=== PATIENT | female | born 2005 | race Caucasian/White ===

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

== ENCOUNTER 2025-01-25 12:47 | Outpatient (CLI) | payer BC, SELFPAY ==
--- NOTE | 2025-01-25 13:00 | CRLHL7_ITS ---
For Patients: As a result of the Century Cures Act, medical imaging exams and procedure reports are released immediately into your electronic medical record. You may view this report before your referring provider. If you have questions, please contact your health care provider. OBSTETRICAL ULTRASOUND TRANSABDOMINAL, 01/25/2025 CLINICAL INDICATION: Dating. LMP: 11/14/2024 TRINITY by LMP: 08/21/2025 Gestational age: 10 weeks 2 days Previous ultrasound: No TECHNIQUE: Real-time fox-scale imaging of the fetus was performed transabdominal. FINDINGS: CRL: 3.3 cm, 10 weeks 1 day; TRINITY 08/22/2025 heart rate: 167 BPM Gestational sac: 4.2 cm, appears within normal limits Yolk sac: 5.0 mm, appears within normal limits Right ovary: 2.6 x 1.0 x 1.7 cm Left ovary: 3.8 x 2.0 x 2.6 cm, CL IMPRESSION: 1. Single living intrauterine measuring 10 weeks 1 day with sonographic due date of 08/22/2025. 2. Subchorionic hemorrhage measures 2.8 x 1.1 x 1.0 cm. AYUSH PASCAL M.D. Diagnostic Radiologist [email or web address] Transcribed: 4:[address]/Dictated by: Ayush Pascal MD @ 01/25/2025 4:06:00 PM (Electronically Signed)
== END 2025-01-25 12:48 | disposition home or self-care (01) ==
LOC: US 12:48
PROVIDERS: PCP Family Medicine; Visit Provider Registered Nurse
DX: Z34.91 Encounter for supervision of normal pregnancy, unspecified, first trimester (principal); O20.9 Hemorrhage in early pregnancy, unspecified; Z3A.10 10 weeks gestation of pregnancy
CPT/HCPCS: 76801; 83021; 83036; 85025; 86592; 86703; 86704; 86706; 86762; 86787; 86803; 86850; 86900; 86901; 87086; 87340; 87491; 87591

== ENCOUNTER 2025-03-25 15:14 | Emergency (ER) | payer BC, SELFPAY ==
--- OUTSIDE RECORDS SUMMARY | 2025-03-25 15:17 | XMS_ITS ---
Author Organization [facility] Source Produ ction (ClinicalSummary Clone) Address Unknown Care Team Providers Care Novelty Twister Tender Name Role Phone Unavailable Primary Care Physician Unavailab le Results * [UNITY] ANEUPLOIDY NIPT Performed by: [facility]. Component Value Range Date Fraction 8.3% 03/04/2025 04 :36 am [facility] Sex Chromosome Aneuploidy NOT DETECTED 04:36 am [facility] Monosomy X LOW RISK <1 in 10,000 2024 04:36 am [facility] Trisomy 13 LOW RISK <1 in 10,000 2024 04:36 am [facility] Trisomy 18 LOW RISK <1 in 10,000 2024 04:36 am [facility] Trisomy 21 LOW RISK <1 in 10,000 2024 04:36 am [facility] Sex MALE 03/04/2025 04:3 6 am [facility] Gestation STACK 03/04/20 25 04:36 am [facility] For detailed report, see PDF See PDF 03/04/2025 04:36 am [place] 03/04/2025 04:3 6 am [facility] Social History Observation Value Start Date End Date
--- OUTSIDE RECORDS SUMMARY | 2025-03-25 15:17 | XMS_ITS ---
Author Organization [facility] Source Produ ction (ClinicalSummary Clone) Address Unknown Care Team Providers Care Retarder Operator Name Role Phone Unavailable Primary Care Physician Unavailab le Results * [UNITY] CARRIER SCREEN Performed by: [facility] Component Value Range Date Sickle Cell Disease/Beta-Thalassemia/Hemo globinopathies carrier screen NEGATIVE 03/03/2025 03:06 am [facility] Alpha-Thalassemia carrier screen NEGATIVE 03/03/2025 03:06 am [facility] Cystic Fibrosis carrier screen NEGATIVE 03/03/2025 03:06 am [facility] Spinal Muscular Atrophy carrier screen NEGATIVE 3 SMN1 copies, SNP not present 03/03/2025 03:06 am [facility] For detailed report, see PDF See PDF 03/03/2025 03:06 am [facility] 03/03/2025 03:0 6 am [facility] Social History Observation Value Start Date End Date
[2025-03-25 15:22] VITALS: BP 123/77; PULSE 96; RESP 18; O2SAT 100; BMI 20.4
--- NOTE | 2025-03-25 16:07 | ED.GENADULT ---
HPI - General Adult General Date Seen: 03/25/25 Chief complaint: Syncope/Fainted Stated complaint: fainting, preg. 18 weeks Time Seen by Provider: 03/25/25 15:59 History of Present Illness HPI narrative: 19-year-old female who is currently 18 weeks . She has a past medical history of anxiety / depression / PTSD, panic attacks, history of a cerebral aneurysm. She notes that she has a history of frequent episodes of syncope dating back for several years of her life. She has been told that they tend to be related to low blood pressure when she is standing that she should try to stay hydrated and eat more salt. She has been doing well during her and has not had any syncopal events for the past couple of months. She did have some nausea and vomiting during her 1st trimester but that is largely resolved for the past several weeks. She has been doing her best to try to drink fluids and stay hydrated (although her boyfriend notes that he thinks she is not drinking). 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 Yesterday at work she had been standing for couple of hours when she began to feel the symptoms leading up to a fainting spell. She started a see flashing lights and a little bit of darkness of her vision. She knew she was going to faint. She tried to moved to the bathroom so that if she fainted she would be embarrassed in front of other people. She did get to the bathroom and then was sitting down and then did black out briefly. She does not think she was injured when she fainted. It sounds like she was able to finish her shift at work yesterday. This morning she was in the shower when she had another episode of fainting. She again felt a little bit lightheaded, saw stars and darkness of her vision. She tried to sit down the shower but fell. She think she probably bumped the back of her head. She feels like there is a small bruise there but there is not any lump. She does not have a severe headache. Vision is normal. No focal numbness or weakness in her arms or legs. No neck pain. She talk about the fainting and they told her to come to the ER because of the fainting. She says there is really nothing different about the spells compared to what she had been experiencing for the past several years. It sounds like she has been thought to have orthostatic hypotension and has been told eat more salt. As far as we know she has never had any cardiac arrhythmia, valve disease, structural heart disease. She does not have any history of seizures. she denies any other recent illness. No fever. No cough. No shortness of breath. No chest pain. No nausea or vomiting recently. Bowel movements have been normal. No diarrhea. No black or bloody stools. Urination is normal. She is not having any vaginal bleeding. No pelvic pain. She does feel her baby kicking sometimes. She has no concerns with the . Per medical record she had an OB check 2 days ago on 03/22. According to those records she was 18 weeks 2 days. She had a lot of anxiety during her early phase of which is better now. She started a job at a grocery store 2 weeks ago. She is staying with her boyfriend at his parent's house. Related Data Home Medications ?Medication ?Instructions ?Recorded ?Confirmed docosahexaenoic acid 200 mg mg PO 01/25/25 03/22/25 capsule ( DHA) Previous Rx's ?Medication ?Instructions ?Recorded epinephrine 0.3 mg/0.3 mL 0.3 ml IM ONCE #1 ea 03/06/22 injection, auto-injector (EpiPen 2-Kt) Allergies Allergy/AdvReac Type Severity Reaction Status Date / Time amoxicillin Allergy Unknown Verified 03/25/25 15:29 [facility] Medical History Abnormal uterine bleeding (AUB) ?N93.9 - Abnormal uterine and vaginal bleeding, unspecified (ICD-10) Heart murmur ?R01.1 - Cardiac murmur, unspecified (ICD-10) Insomnia ?G47.00 - Insomnia, unspecified (ICD-10) Depression ?F32.A - Depression, unspecified (ICD-10) Anxiety ?F41.9 - Anxiety disorder, unspecified (ICD-10) Serotonin syndrome ?G25.79 - Other drug induced movement disorders (ICD-10) Intentional overdose ?T50.902A - Poisoning by unspecified drugs, medicaments and biological substances, intentional self-harm, initial encounter (ICD-10) History of syncope ?Z87.898 - Personal history of other specified conditions (ICD-10) History of posttraumatic stress disorder (PTSD) ?Z86.59 - Personal history of other mental and behavioral disorders (ICD-10) History of attention deficit hyperactivity disorder (ADHD) ?Z86.59 - Personal history of other mental and behavioral disorders (ICD-10) Surgical History Cisco teeth extracted ?K08.409 - Partial loss of teeth, unspecified cause, unspecified class (ICD-10) Family History Family/Other Brain aneurysm Mother Anxiety and depression Father Anxiety and depression Bipolar disorder Father Alcohol dependence Drug dependence Mother FH: mental illness Social History Narrative: Single, 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 Nonsmoker. No alcohol use. What is your current living situation?: I presently have a place to live Problems where you live: no known problems and declined to answer In the past 12 months, utilities in danger of being shut off: no In past 12 months, lack of transportation kept you from medical appts, meetings, work, or getting things needed for daily living: no In the past 12 mos, have been you worried that your food would run out before you had money to buy more?: never true In the past 12 mos, the food you bought just didn't last and you didn't have money to buy more?: never true Smoking Status: Never smoker Do you use any of these nicotine containing products: Vaping Products Second hand tobacco smoke exposure: No How often do you have a drink containing alcohol: never AUDIT-C Alcohol total score: 0 Non-prescribed substance use: marijuana (any form) How often does anyone, including family, friends and others, physically hurt you: never How often does anyone, including family, friends and others, insult or talk down to you: never How often does anyone, including family, friends and others, threaten you with harm: never How often does anyone, including family, friends and others, scream or curse at you: frequently service: No Health Related Social Needs: Other personal risk factors, not elsewhere classified (Z91.89) Exam Narrative: Exam Narrative: Constitutional: Appears well-developed and well-nourished. Alert. Conversant. Non toxic. HENT: Head: Patient says she has a a mild occipital headache. No depressed skull fracture, Raccoon Eyes, Ayers's sign, or hemotympanum. Face normal. TMs normal. Nose: Nose normal. Mouth/Throat: Oral mucosa is clear and moist. no trismus. Pharynx normal. Tonsils symmetric. No tonsillar enlargement, erythema, or exudate. Eyes: Conjunctivae normal. EOM normal. Pupils equal, round, and reactive to light. No scleral icterus. Neck: Normal range of motion. Neck supple. No tracheal deviation present. Cardiovascular: Normal rate, regular rhythm. No gallop. No friction rub. No murmur heard. Symmetric radial artery pulses Pulmonary/Chest: Effort normal. No stridor. No respiratory distress. No wheezes. No rales. No rhonchi . No tenderness. Abdominal: Soft. Bowel sounds normal. No distension. Gravid nontender uterus with the fundus just below the umbilicus consistent with 18 week reported dates.. No tenderness. No rebound. No guarding. Musculoskeletal: RUE: Normal range of motion. No tenderness. No deformity LUE: Normal range of motion. No tenderness. No deformity RLE: Normal range of motion. No edema. No tenderness. No deformity LLE: Normal range of motion. No edema. No tenderness. No deformity Lymph: No cervical adenopathy. Neurological: Mental status normal. Attention normal. Alert and oriented x3. GCS 15. Memory normal. Speech fluent. Cognition normal. Cranial Nerves intact II-XII except I did not formally test gag or visual acuity. EOMI. Palate elevates symmetrically and tongue protrudes in the midline. Strength: 5/5 trapezius on the right and left 5/5 deltoid on the right and left 5/5 biceps on the right and left 5/5 triceps on the right and left 5/5 director of cardiology on the right and left 5/5 thumb opposition on the right and left 5/5 finger abduction on the right and left 5/5 hip flexors (L3) on the right and left 5/5 quadriceps (L4) on the right and left 5/5 tibialis anterior on the right and left 5/5 EHL (L5) on the right and left 5/5 gastrocnemius (S1) on the right and left 5/5 hamstring on the right and left Sensation intact to light touch in both upper extremities (C4-T1) Sensation intact to light touch in Both lower extremities (L4-S1). Finger to nose and coordination normal. Gait normal. Skin: Skin is warm and dry. No rash noted. No pallor. Normal capillary refill. Psychiatric: Normal mood. Normal affect. polite. Interacts supportively with her boyfriend. Const: Vital Signs, click to edit/add: Vital Signs - 24 hr 03/25/25 15:22 Pulse Rate [Right Pulse Oximeter] 96 Respiratory Rate 18 Blood Pressure [Ri ght Upper Arm] 123/77 Pulse Oximetry 100 Oxygen Delivery Me thod Room Air Course Vital Signs Vital signs: Initial Vital Signs Pulse Rate 96 03/25/25 15:22 Pulse Rhythm Regular 03/25/25 15:22 Pulse Strength 3+ Normal 03/25/25 15:22 Respiratory Rate 18 03/25/25 15:22 Blood Pressure 123/77 03/25/25 15:22 Blood Pressure Mean 92 03/25/25 15:22 Blood Pressure Position Sitting 03/25/25 15:22 Pulse Oximetry 100 03/25/25 15:22 Oxygen Delivery Method Room Air 03/25/25 15:22 Vital Signs Pulse Rate 96 03/25/25 15:22 Respiratory Rate 18 03/25/25 15:22 Blood Pressure 123/77 03/25/25 15:22 Pulse Oximetry 100 03/25/25 15:22 Oxygen Delivery Method Room Air 03/25/25 15:22 Pulse Rate 96 03/25/25 15:22 Respiratory Rate 18 03/25/25 15:22 Blood Pressure 123/77 03/25/25 15:22 Pulse Oximetry 100 03/25/25 15:22 Oxygen Delivery Method Room Air 03/25/25 15:22 Medications Administered Medications: Discontinued Medications Generic Name Dose Route Start Last Admin Trade Name Freq PRN Reason Stop Dose Admin Acetaminophen 1,000 mg 03/25/25 16:40 03/25/25 16:53 Acetaminophen 500 Mg Tablet PO 03/25/25 16:41 1,000 mg ONCE ONE Administration Sodium Chloride 1,000 mls @ 1,000 mls/hr 03/25/25 16:45 03/25/25 17:49 0.9 % Sodium Chloride 1000 Ml IV 03/25/25 17:44 Infused .Q1H YUE Infusion Medical Decision Making MDM Narrative Medical decision making narrative: This patient presents for evaluation of a syncopal event. A broad differential was considered. History provided suggests a benign cause of syncope. No murmurs . she does have an extensive history of fainting for the past several years and it sounds like she has had workup with her doctors before with thought that it is related to orthostasis. She has been encouraged to drink fluids any salt to maintain Intravascular volume. Initial ECG shows borderline short [place] but no delta waves. She has normal sinus rhythm and no dysrhythmogenic abnormality such as WPW, prolonged QT, Brugada syndrome, and no ischemia. No symptoms/findings concerning for cardiac ischemia or ACS. No headache or other neurologic symptoms to suggest subarachnoid , stroke . No reported seizure-like activity or postictal phase. residential monitor while the patient here in the ER showed no dysrhythmia or ectopy. A broad differential diagnosis was considered including SVT, Atrial fibrillation, ventricular arrhythmia, thyroid disease, acute electrolyte abnormality, drugs/medications, medication side effect, anemia, heart disease, PE, among others. labs do show mild anemia which can be physiologic for 2nd trimester .The workup and exam here in ED shows low risk for dangerous cause of the patient's syncope, and no risks factors to warrant admission. She does not have any signs of serious intracranial injury or any signs of abdominal injury from her fainting spell this morning. She is not having any vaginal bleeding or pelvic pelvic cramping or abdominal pain. heart tones are normal. Clinical judgement suggests that supportive outpatient management is indicated. Recommend follow up with Her OB team for recheck. Consult to keep up with her hydration, frequent small snacks. She is already aware that she needs to drink plenty of fluids and taking sodium to keep her intravascular volume up and she will continue to redouble her efforts.. Questions answered and return precautions given Lab Data Labs: Lab Results 03/25/25 Range/Units 16:40 WBC 9.10 (4.50-11.00) K/uL RBC 3.86 L (4.00-5.20) m/uL Hgb 11.4 L (12.0-16.0) gm/dL Hct 34.4 (33.0-51.0) % MCV 89 (80-100) fL MCH 30 (26-34) pg MCHC 33 (32-36) gm/dL RDW Coeff of Laisha 13.5 (11.5-15.5) % Plt Count 244 (140-440) K/uL Neut % (Auto) 72.8 H (42.0-72.0) % Lymph % (Auto) 18.8 L (20-44) % [place] % (Auto) 6.9 (0.0-11.0) % Eos % (Auto) 0.9 (0.0-7.0) % Baso % (Auto) 0.2 (0.0-3.0) % Neut # (Auto) 6.60 (1.7-7.0) K/uL Lymph # (Auto) 1.70 (0.90-2.90) K/uL [place] # (Auto) 0.60 (0.00-0.90) K/UL Eos # (Auto) 0.08 (0.00-0.50) K/uL Baso # (Auto) 0.02 (0.00-0.30) K/uL Abs Immat Gran (auto) 0.04 (0.00-0.30) K/uL Imm/Tot Granulo (auto) 0.4 % Sodium 134 L (135-149) mmol/L Potassium 3.7 (3.6-5.1) mmol/L Chloride 102 (96-114) mmol/L Carbon Dioxide 25 (20-32) mmol/L Anion Gap 7 (7-15) mEq/L BUN 9 (5-24) mg/dL Creatinine 0.5 (0.5-1.5) mg/dL Estimated Creat Clear 147.80 Estimated GFR 138 ml/min Glucose 87 (60-115) mg/dL Calcium 9.4 (8.4-10.6) mg/dL Discharge Plan Discharge Clinical Impression: Syncope, Second trimester Patient Disposition: Home, Self-Care Condition: Stable Instructions: Syncope (DC) Additional Instructions: as we discussed, so far your workup looks reassuring. However, if you have any problems especially more episodes of fainting, dizziness or lightheadedness, episodes of chest pain or palpitations, abdominal pain or vaginal bleeding, fever, or if you have any other concerns, please return to the ER right away. Please recheck with your OB team next week for a checkup. Prescriptions: No Action epinephrine [EpiPen 2-Kt] 0.3 mg/0.3 mL auto-injector 0.3 ml IM ONCE Qty: 1 1RF Rx Instructions: as a single dose; may repeat once DHA 200 mg capsule PO Follow Up/Referrals: Trixie Hubbard MD [Primary Care Provider, Family Practice] Stand Alone Forms: [employer] Info Instructions
[2025-03-25] MEDS: ACETAMINOPHEN 500 MG TABLET 1000 MG PO (16:53)
[2025-03-25 17:17] LABS: Hematocrit 34.4 % (33.0-51.0); Hemoglobin* 11.4 gm/dL (12.0-16.0); Immature Granulocytes Abs Auto 0.04 K/uL (0.00-0.30); Immature Granulocytes Pct Auto 0.4 %; Mean Corpuscular HGB Conc 33 gm/dL (32-36); Mean Corpuscular Hemoglobin 30 pg (26-34); Mean Corpuscular Volume 89 fL (80-100); RDW Coefficient of Variation % 13.5 % (11.5-15.5); Red Blood Count 3.86 m/uL (4.00-5.20); White Blood Count* 9.10 K/uL (4.50-11.00)
[2025-03-25 17:24] LABS: Chloride* 102 mmol/L (96-114); Potassium* 3.7 mmol/L (3.6-5.1); Sodium* 134 mmol/L (135-149)
[2025-03-25 17:27] LABS: Anion Gap 7 mEq/L (7-15); Blood Urea Nitrogen* 9 mg/dL (5-24); Calcium* 9.4 mg/dL (8.4-10.6); Carbon Dioxide* 25 mmol/L (20-32); Creatinine* 0.5 mg/dL (0.5-1.5); Est. Creatinine Clearance* 147.80; Estimated Glomerular Filt Rate 138 ml/min; Glucose* 87 mg/dL (60-115)
[2025-03-25 17:42] LABS: Lymphocytes Absolute Auto 1.70 K/uL (0.90-2.90); Slide Review Reflex No
[2025-03-25 18:05] VITALS: BP 101/64; PULSE 66; RESP 18; TEMP 36.4; O2SAT 99
== END 2025-03-25 18:08 | disposition home or self-care (01) ==
PROVIDERS: Emergency Provider Emergency Medicine; PCP Family Medicine
DX: R55 Syncope and collapse (principal)
CPT/HCPCS: 36415; 80048; 85025; 93005; 99283; 99284; A9270; J7030

== ENCOUNTER 2025-04-05 11:14 | Outpatient (CLI) | payer BC, SELFPAY ==
--- NOTE | 2025-04-05 11:15 | CRLHL7_ITS ---
For Patients: As a result of the Century Cures Act, medical imaging exams and procedure reports are released immediately into your electronic medical record. You may view this report before your referring provider. If you have questions, please contact your health care provider. OB ULTRASOUND GREATER THAN 14 WEEKS, 04/05/2025 CLINICAL HISTORY: Supervision of normal . COMPARISON: 01/25/2025. TECHNIQUE: Real time fox scale imaging of the fetus was performed. Transabdominal imaging performed. FINDINGS: LMP: 11/14/2024. TRINITY by LMP: 08/21/2025. GA: 20 weeks 2 days. Position: Vertex. Cervix: Visualized. Technique: TA. Length of closed cervix: 4.5 cm. Placenta/Cord: Anterior. Technique: TA. Placenta tip to internal OS: 8.6 cm. Umbilical Cord: 3 vessel cord. Placental Insertion: Central. Amniotic Fluid: 4.2 cm SDP. OBSERVED STRUCTURES Calvarium/Spine: Cerebellum: 2.0 cm, 20 weeks 5 days Cisterna Magna: 5.43 mm Nuchal Fold: 3.3 mm Lateral Ventricle: 5.7 mm CSP Midline Falx Choroid Plexus Spine Abdomen: Stomach ??? Incomplete distention Abd Cord Insert Urinary Bladder Kidneys Diaphragm Face: Nose/Lips Orbital view Profile Limbs: Upper extremities Lower extremities Feet Vascular: 4 Ch Heart LVOT RVOT 3VV 3VTV BIOMETRY BPD: 4.9 cm, 20 weeks 5 days. 68% HC: 17.6 cm, 20 weeks 1 day. 32% AC: 14.8 cm, 20 weeks 1 day. 38% FL: 3.3 cm, 20 weeks 3 days. 47% FL/AC: 22.44% HC/AC Ratio: 1.18. Heart Rate: 144 bpm. Age by this US: 20 weeks 3 days. TRINITY by this US: 08/20/2025. EFW: 342.04 grams, 0 lb 12 oz. Percentile by Trinity: 44% IMPRESSION: 1. 4 cm placental reyes is present adjacent to the placental cord insertion. Incomplete distention of the stomach. Maternal medicine follow-up recommended. 2. Incomplete visualization of the left hand. This should also be re-assessed. 3. Concordance of clinical and sonographic dating. 4. Remainder of the anatomic survey is normal. Ayush Shearer M.D. Diagnostic Radiologist [email or web address] Transcribed: 1:11 pm DW/Dictated by: Ayush Shearer MD @ 04/05/2025 12:53:00 PM (Electronically Signed)
== END 2025-04-05 11:15 | disposition home or self-care (01) ==
LOC: US 11:14
PROVIDERS: PCP Family Medicine; Visit Provider Registered Nurse
DX: Z34.92 Encounter for supervision of normal pregnancy, unspecified, second trimester (principal); Z3A.20 20 weeks gestation of pregnancy
CPT/HCPCS: 76805; 87086

== ENCOUNTER 2025-05-31 15:47 | Outpatient (CLI) | payer BC, SELFPAY ==
--- NOTE | 2025-05-31 15:45 | CRLHL7_ITS ---
For Patients: As a result of the Century Cures Act, medical imaging exams and procedure reports are released immediately into your electronic medical record. You may view this report before your referring provider. If you have questions, please contact your health care provider. OB ULTRASOUND FOLLOW-UP GROWTH, TRANSABDOMINAL CLINICAL HISTORY: LMP: 11/14/2024. TRINITY by LMP: 08/21/2025. Single. INDICATION: Follow-up growth, placental reyes behind cord insertion into placenta. TECHNIQUE: Real time fox scale imaging of the fetus was performed. Transabdominal imaging performed. CERVIX: Not visualized. POSITIONING: Vertex. AMNIOTIC FLUID: 7.9 cm SDP (N: greater than 2 x 1 cm) PLACENTA: Technique: Transabdominal. PLACENTA POSITION: Anterior. DOPPLER: heart rate: 154 bpm. BIOMETRY: BPD: 7.5 cm. 30 w, 0 d, 87 percent. HC: 26.7 cm. 29 w, 0 d, 42 percent. AC: 24.1 cm. 28 w, 3 d, 36 percent. FL: 5.3 cm. 28 w, 2 d, 36 percent. FL/AC ratio: 22.12 percent. HC/AC ratio: 1.10. EFW: 1246 g. Weight: 2 lbs, 12 oz. age by this US: 29 w, 0 d. TRINITY by this US: 08/16/2025. Percentile by TRINITY: 47 percent. IMPRESSION: 1. Sonographic gestational age 29 weeks 0 days and sonographic due date 08/16/2025. Sonographic age is 5 days ahead of the clinical age. 2. Estimated weight 47th percentile. Abdominal circumference 47th percentile. 3. Placental reyes adjacent to the cord insertion measures approximately 3 cm. Ayush Shearer M.D. Diagnostic Radiologist [email or web address] SP/Dictated by: Ayush Shearer MD @ 05/31/2025 6:44:00 PM (Electronically Signed)
== END 2025-05-31 15:48 | disposition home or self-care (01) ==
LOC: US 15:48
PROVIDERS: PCP Family Medicine; Visit Provider Registered Nurse
DX: O28.3 Abnormal ultrasonic finding on antenatal screening of mother (principal); O36.5930 Maternal care for other known or suspected poor fetal growth, third trimester, not applicable or unspecified; Z3A.29 29 weeks gestation of pregnancy
CPT/HCPCS: 76816; 86592

== ENCOUNTER 2025-07-12 13:57 | Outpatient (CLI) | payer BC, SELFPAY | END 2025-07-12 13:58 | disposition home or self-care (01) | LOC: NFLDREF 07-17 17:32 | PROVIDERS: PCP Family Medicine; Referring Provider Family Medicine; Visit Provider Obstetrics & Gynecology | DX: Z34.93 Encounter for supervision of normal pregnancy, unspecified, third trimester (principal) | CPT/HCPCS: 82728 ==

== ENCOUNTER 2025-07-12 13:58 | Outpatient (CLI) | payer BC, SELFPAY ==
--- NOTE | 2025-07-12 14:00 | CRLHL7_ITS ---
For Patients: As a result of the Century Cures Act, medical imaging exams and procedure reports are released immediately into your electronic medical record. You may view this report before your referring provider. If you have questions, please contact your health care provider. OB ULTRASOUND LMP: 11/14/2024. TRINITY by LMP: 08/21/2025. GA: 34 w, 2 d. Single. Comparison: Ultrasound 05/31/2025, 04/12/2025. INDICATION: Placental reyes. TECHNIQUE: Real time grayscale imaging of the fetus was performed. Transabdominal. CERVIX: Not visualized. POSITIONING: Vertex. AMNIOTIC FLUID: 26.5 cm LATOSHA. 9.0 cm. SDP (N: greater than 2 x 1 cm) PLACENTA: Technique: Transabdominal. PLACENTA POSITION: Anterior. DOPPLER: heart rate: 129 bpm. BIOMETRY: BPD: 8.3 cm. 33 w, 3 d, 25.4%. HC: 31.0 cm. 34 w, 5 d, 24.3%. AC: 31.6 cm. 35 w, 4 d, 85.4%. FL: 6.4 cm. 33 w, 0 d, 12.6%. FL/AC ratio: 20.2%. HC/AC ratio: 1.0. EFW: 2457g. Weight: 5 lbs., 7 oz. age by this US: 34 w, 1 d. TRINITY by this US: 08/22/2025. Percentile by TRINITY: 52.3%. IMPRESSION: 1. Sonographic gestational age 34 weeks 1 day and sonographic due date 08/22/2025. Good correlation with dates. Normal interval growth. 2. Estimated weight 52nd percentile. Abdominal circumference 85th percentile. 3. Amniotic fluid single deepest pocket 9.0 cm. LATOSHA 26.5 cm. Ayush Shearer M.D. Diagnostic Radiologist [email or web address] RU/hailee stephen/Dictated by: Ayush Shearer MD @ 07/12/2025 3:29:00 PM (Electronically Signed)
== END 2025-07-12 13:59 | disposition home or self-care (01) ==
LOC: US 13:58
PROVIDERS: PCP Family Medicine; Visit Provider Obstetrics & Gynecology
DX: O36.51 Maternal care for known or suspected placental insufficiency (principal); R93.89 Abnormal findings on diagnostic imaging of other specified body structures
CPT/HCPCS: 76816

== ENCOUNTER 2025-07-12 15:14 | Emergency (ER) | payer BC, SELFPAY ==
[2025-07-12] VITALS (8 sets, daily range): BP systolic 102–129; BP diastolic 68–93; PULSE 84–105; RESP 11–25; TEMP 36.3; O2SAT 96–100
--- OUTSIDE RECORDS SUMMARY | 2025-07-12 15:18 | XMS_ITS | Clinical Summary ---
Author Organization [facility] Address [address] [place] [address] Care Team Providers Care Rn Discharge Name Role Phone No Ref-Primary, Physician Primary Care Provider Encounters DateTypeDepartmentCare UlcrNssscmrncnk87/16/2025 8:30 AM CDTOffice Visit [facility] Maternal Medicine [facility] [address] [place] [address] Kandi Garrido MD abnormality affecting management of mother, antepartum, single or unspecified fetus (Primary Dx)04/12/2025 7:47 AM CDT - 04/12/2025 11:59 PM CDT Hospital Encounter [facility] Maternal Medicine [facility] [address] [place] [id number] Kandi Garrido MD related condition, antepartum Discharge Disposition: Home or Self Care04/12/2025Travelfrom Last 3 Months Social History Tobacco UseTypesPacks/DayYears UsedDateSmoking Tobacco: Never Assessed Estimated Date of SjctkrjbBvorldajDqm21/26/2026Based on UltrasoundSex and Gender InformationValueDate RecordedSex Assigned at BirthNot on fileLegal SexFemale 04/08/2025 9:38 AM CDTGender IdentityNot on fileSexual OrientationNot on file Plan of Treatment Health MaintenanceDue DateLast DoneCommentsADVANCE CARE ATDYFLUE2004ANNUAL REVIEW OF HM ERLGXQ93 2004CHLAMYDIA JJVTWOQNM2004YEARLY PREVENTIVE VISIT2007HIV IYXWGXJAZ09/23/2019MENINGITIS B VACCINE (1 of 2 - Standard) 2020HEPATITIS C MYGZFWCJG67/23/2022PHQ-2 (once per calendar year) 2024MATERNAL SCREENING GCXZTXGRGV03/30/2025COVID-19 VACCINE ( - season), 07/27/2021, 12/08/2020, Additional history exists INFLUENZA VACCINE (#1), 05/24/2022, 05/18/2021, Additional history existsOBGCT (OB)05/02/2025PAP1TDAP VACCINE () 05/23/2025RSV VACCINE (1 - Risk 1-dose series)06/27/2025DTAP/TDAP/TD VACCINE (6 - Td or Tdap), 06/08/2010, 2004, Additional history existsZOSTER VACCINE (1 of 2)4PNEUMOCOCCAL VACCINE: PEDIATRICS (0 to 5 YEARS) AND AT-RISK PATIENTS (6 to 49 YEARS)Aged Out06/04/2005, 2004, 2004, Additional history existsNo longer eligible based on patient's age to complete this topicHEPATITIS B BXFGBZTDdkfrjfph61/02/2015, 06/20/2014, 03/21/2008HPV VWQSILOWazfcrpkg83/04/2018, 02/27/2017MENINGITIS LSDYTTPHjwievlbl74/10/2022, 02/27/2017 Procedures Procedure NamePriorityDate/TimeAssociated DiagnosisComments[facility] COMPREHENSIVE XGSBVNJoojfpu51/16/2025 8:39 AM CDT related condition, antepartum from Last 3 Months Results * [facility] Comprehensive Single (04/12/2025 8:39 AM CDT)Anatomical Region LateralityModalityUltrasoundSpecimen (Source)Anatomical Location / Laterality Collection Method / VolumeCollection TimeReceived Time04/12/2025 7:55 AM CDT Impressions 04/12/2025 8:51 AM CDT IMPRESSION 1. Choudhury at 21w 1d gestational age by 10 week US (irregular menses reported) with EDD1/. 2. No anomalies commonly detected by ultrasound were identified in the detailed anatomic survey within the limits of ultrasound. The stomach appears sonographically normal. 3. Growth parameters and estimated weight were consistent with gestational age predicted by assigned TRINITY. 4. The amniotic fluid volume appeared normal. 5. On transabdominal imaging the cervix appeared long and closed. 6. There is a placental reyes noted near the umbilical cord insertion into the placenta. Narrative 04/12/2025 8:51 AM CDT Comprehensive Pat. Name: CALLIE ROWE ? Study Date: ??04/12/2025 7:55am Pat. NO: ??[id number] ?Referring ??: PRECIOUS NORMAN Site: ? Brand Ambassador: Zachariah Harden RDMS : ??2005 ?Age: ?? 19 INDICATION Incomplete anatomy, small stomach, and placental lakes on outside ultrasound METHOD Transabdominal ultrasound examination. View: Sufficient Choudhury . Number of fetuses: 1 DATING ? Date ?Details ?Gest. age ?TRINITY LMP ?11/14/2024 ?Cycle: irregular cycle ? 21 w + 2 d ? 08/21/2025 Previous U/S ?01/25/2025 ?GA, GA 10 w + 1 d ? 21 w + 1 d ? 08/22/2025 U/S ? 04/12/2025 ? based upon AC, BPD, Femur, HC ?21 w + 4 d ? 08/19/2025 Assigned dating ?based on ultrasound (GA), selected on 04/12/2025 ?21 w + 1 d ? 08/22/2025 GENERAL EVALUATION Cardiac activity present. FHR 135 bpm. movements: present. Presentation: tranverse with head to maternal left, variable Placenta: Anterior, No Previa, > 2 cm from internal os, placental lakes Umbilical cord: 3 vessel cord Amniotic fluid: Amount of AF: normal. MVP 6.5 cm BIOMETRY BPD ? 51.9 ?mm ? 21w 5d ?Hadlock OFD ? 64.7 ?mm ? 20w 4d ?Nicolaides HC ? 186.1 ?mm ? 21w 0d ? Hadlock Cerebellum tr ?21.9 ?mm ? 20w 6d ? Nicolaides AC ? 171.1 ?mm ? 22w 1d ?73% ?Hadlock Femur ?35.4 ?mm ? 21w 1d ? Hadlock Humerus ? 33.8 ? mm ?21w 3d ?Gabriela Weight Calculation: EFW ?437 ? g ? 69% ?Hadlock EFW (lb,oz) ?0 lb 15 ? oz EFW by ? Hadlock (CVY-BC-CX-FL) Head / Face / Neck Biometry: Land Surveyor Manager ?6.6 ? mm CM ? 4.2 ? mm Nasal bone ? 5.8 ?mm ANATOMY The following structures appear normal: Head / Neck ? Cranium. Head size. Head shape. Lateral ventricles.Choroid plexus. Midline falx. Cavum septi pellucidi. Cerebellum. Cisterna magna. ? Parenchyma. Thalami. Vermis. ? Neck. Face ? Lips. Profile. Nose. Maxilla. Mandible. Orbits. Lens. Heart / Thorax ?4-chamber view. RVOT view. LVOT view. 3-vessel view.8-deazfv-wpbzirp view. Situs. Aortic arch view. Bicaval view. Ductal arch view. Superior ? vena cava. Inferior vena cava. Cardiac position. Cardiac size. Cardiac rhythm. ? Right lung. Left lung. Diaphragm. Abdomen ? Abdom. wall. Cord insertion. Stomach. Kidneys. Bladder. Liver. Bowel. Genitals. Spine ?Cervical spine. Thoracic spine. Lumbar spine. Sacral spine. Extremities / Skeleton ?Arms. Right arm. Right hand. Left arm. Left hand. Legs. Right leg. Right foot. Left leg. Left foot. sex: male. MATERNAL STRUCTURES Cervix ?Visualized ? Appearance: Appears Closed ? Approach - Transabdominal: Cervical length 46.5 mm Right Ovary ?Visualized Left Ovary ?Visualized RECOMMENDATION Thank you for referring your patient for ultrasound assessment. I discussed the findings on today's ultrasound with the patient. I reviewed the limitations of ultrasound both in detecting aneuploidy and structural abnormalities. Ultrasound can routinely detect 80-90% of structural abnormalities. She had low risk cell free DNA for genetic screening this . We reviewed the normal anatomy today and the placental reyes which is located near the cord insertion. I have recommend growth US at 28 and 34 weeks in [place] with OB/Radiology given this finding. Return to primary provider for continued care. If you have questions regarding today's evaluation or if we can be of further service, please contact the [facility]. I spent a total of 21 minutes (excluding the ultrasound interpretation) on the date of this encounter including preparing to see the patient (reviewing medical records/tests), in direct zlak-oj-maiu contact with the patient counseling and discussing the plan of care, documenting the visit in the electronic medical record, and communicating with other health home care music therapist and/or care coordination. Procedure Note Garrido, Cresta Wedel, MD - 04/12/2025 Comprehensive Pat. Name: CALLIE ROWE Study Date: 04/12/2025 7:55am Pat. NO: [id number] Referring MD: PRECIOUS NORMAN Site: Brand Ambassador: Zachariah Harden RDMS : 2005 Age: 19 INDICATION Incomplete anatomy, small stomach, and placental lakes on outsideultrasound METHOD Transabdominal ultrasound examination. View: Sufficient Choudhury . Number of fetuses: 1 DATING DateDetailsGest. age TRINITY LMP 11/14/2024ycle: irregular cycle21 w + 2 d 08/21/2025 Previous U/S 01/25/2025 GA, GA10 w + 1 d21 w + 1 d 08/22/2025 U/S 5based upon AC, BPD, Femur, HC21 w + 4 d 08/19/2025 Assigned dating based on ultrasound (GA), selected on04/12/2025 21w + 1 d 08/22/2025 GENERAL EVALUATION Cardiac activity present. FHR 135 bpm. movements: present.Presentation: tranverse with head to maternal left, variable Placenta: Anterior, No Previa, > 2 cm from internal os, placental lakes Umbilical cord: 3 vessel cord Amniotic fluid: Amount of AF: normal. MVP 6.5 cm BIOMETRY BPD 51.9mm 21w 5dHadlock OFD 64.7mm 20w 4dNicolaides HC 186.1mm 21w 0dHadlock Cerebellum tr 21.9mm 20w 6dNicolaides AC 171.1mm 22w 1d 73%Hadlock Femur 35.4mm 21w 1dHadlock Humerus 33.8mm 21w 3dJeanty Weight Calculation: EFW 437g 69%Hadlock EFW (lb,oz) 0 lb 15oz EFW by Hadlock(WTK-WT-XS-FL) Head / Face / Neck Biometry: Land Surveyor Manager 6.6mm CM 4.2mm Nasal bone 5.8mm ANATOMY The following structures appear normal: Head / Neck Cranium. Head size. Head shape.Lateral ventricles. Choroid plexus. Midline falx. Cavum septi pellucidi.Cerebellum. Cisterna magna. Parenchyma. Thalami. Vermis. Neck. Face Lips. Profile. Nose. Maxilla.Mandible. Orbits. Lens. Heart / Thorax 4-chamber view. RVOT view. LVOT view.3-vessel view. 5-ywnqoa-rqpwndk view. Situs. Aortic arch view. Bicavalview. Ductal arch view. Superior vena cava. Inferior vena cava.Cardiac position. Cardiac size. Cardiac rhythm. Right lung. Left lung.Diaphragm. Abdomen Abdom. wall. Cord insertion. Stomach.Kidneys. Bladder. Liver. Bowel. Genitals. Spine Cervical spine. Thoracic spine.Lumbar spine. Sacral spine. Extremities / Skeleton Arms. Right arm. Right hand. Left arm.Left hand. Legs. Right leg. Right foot. Left leg. Left foot. sex: male. MATERNAL STRUCTURES Cervix Visualized Appearance: Appears Closed Approach - Transabdominal:Cervical length 46.5 mm Right Ovary Visualized Left Ovary Visualized RECOMMENDATION Thank you for referring your patient for ultrasound assessment. I discussed the findings on today's ultrasound with the patient. Ireviewed the limitations of ultrasound both in detecting aneuploidy andstructural abnormalities. Ultrasound can routinely detect 80-90% of structural abnormalities. She had low riskcell free DNA for genetic screening this . We reviewed the normal anatomy today and the placental reyes which is located near the cord insertion. I have recommend growth US at 28 and 34weeks in [place] with OB/Radiology given this finding. Return to primary provider for continued care. If you have questions regarding today's evaluation or if we can be offurther service, please contact the [facility]. I spent a total of 21 minutes (excluding the ultrasound interpretation) onthe date of this encounter including preparing to see the patient(reviewing medical records/tests), in direct gbfb-yw-bdsx contact with the patient counseling and discussingthe plan of care, documenting the visit in the electronic medical record,and communicating with other health home care music therapist and/or care coordination. IMPRESSION 1. Choudhury at 21w 1d gestational age by 10 week US (irregularmenses reported) with TRINITY 08/22/25. 2. No anomalies commonly detected by ultrasound were identified inthe detailed anatomic survey within the limits of prenatalultrasound. The stomach appears sonographically normal. 3. Growth parameters and estimated weight were consistent withgestational age predicted by assigned TRINITY. 4. The amniotic fluid volume appeared normal. 5. On transabdominal imaging the cervix appeared long and closed. 6. There is a placental reyes noted near the umbilical cord insertion intothe placenta. Authorizing ProviderResult TypeResult StatusChdenise Norman APRN CNPIMG M US ORDERABLESEdited Result - Final from Last 3 Months Insurance * Guarantor: Callie Rowe TypeRelation to PatientDate of BirthPhone Billing AddressPersonal/XbkmaiQblc[address] [place] [address] * Guarantor: Callie Rowe TypeRelation to PatientDate of BirthPhone Billing AddressPersonal/WllcpxVujc[address] [place] [address] Care Teams Team MemberRelationshipSpecialtyStart DateEnd Date No Ref-Primary, Physician PCP - [facility]04/08/25
[2025-07-12 16:12] LABS: PCR FLU A Negative PCR FLU A (Negative); PCR FLU B Negative PCR FLU B (Negative); PCR RSV Negative PCR RSV (Negative); SARS PCR* Negative SARS-CoV-2 (Negative)
--- OUTSIDE RECORDS SUMMARY | 2025-07-12 16:12 | XMS_ITS ---
Author Organization [facility] Source Produ ction (ClinicalSummary Clone) Address Unknown Care Team Providers Care Automotive Parts Salesperson Name Role Phone Unavailable Primary Care Physician Unavailab le Results * [UNITY] ANEUPLOIDY NIPT Performed by: [employer] [facility] Component Value Range Date Fraction 8.3% 03/04/2025 04:36 am UTCSex Chromosome AneuploidyNOT VJYKWEGH00/08/2025 04:36 am UTCMonosomy XLOW RISK <1 in , 04:36 am UTCTrisomy 13LOW RISK <1 in , 04:36 am UTCTrisomy 18LOW RISK <1 in , 04:36 am UTCTrisomy 21LOW RISK <1 in , 04:36 am UTCFetal SexMALE 03/04/2025 04:36 am UTCPregnancy ZsvbidnouUPLOLACDH29/08/2025 04:36 am UTCFor detailed report, see PDFSee PDF03/04/2025 04:36 am UTC03/04/2025 04:36 am UTC Social History Observation Value Start Date End Date
--- OUTSIDE RECORDS SUMMARY | 2025-07-12 16:12 | XMS_ITS ---
Author Organization [facility] Source Produ ction (ClinicalSummary Clone) Address Unknown Care Team Providers Care Human Resources Communications Manager Name Role Phone Unavailable Primary Care Physician Unavailab le Results * [UNITY] CARRIER SCREEN Performed by: [employer] Component Value Range Date Sickle Cell Disease/Beta-Thalassemia/Hemoglobino pathies carrier screen NEGATIVE 03/03/2025 03:06 am UTCAlpha-Thalassemia carrier mkrqteFCGEUCGZ71/07/2025 03:06 am UTCCystic Fibrosis carrier flaikjTYAUQIZN90/07/2025 03:06 am UTCSpinal Muscular Atrophy carrier screenNEGATIVE 3 SMN1 copies, SNP not ubhsxnd0603/03/2025 03:06 am UTCFor detailed report, see PDFSee PDF03/03/2025 03:06 am UTC 03/03/2025 03:06 am UT Social History Observation Value Start Date End Date
[2025-07-12 16:52] LABS: HCO3 VBG 26 mmol/L (21-28); PCO2 VBG 45 mmHG (40-50); PO2 VBG 31.8 mmHG (25-47); pH VBG 7.372 (7.32-7.43)
[2025-07-12 17:04] LABS: Hematocrit* 31.8 % (33.0-51.0); Hemoglobin* 9.8 gm/dL (12.0-16.0); Immature Granulocytes Abs Auto 0.18 K/uL (0.00-0.30); Immature Granulocytes Pct Auto 2.6 %; Lymphocytes Absolute Auto 2.00 K/uL (0.90-2.90); Mean Corpuscular HGB Conc 31 gm/dL (32-36); Mean Corpuscular Hemoglobin 26 pg (26-34); Mean Corpuscular Volume 86 fL (80-100); RDW Coefficient of Variation % 12.7 % (11.5-15.5); Red Blood Count* 3.71 m/uL (4.00-5.20); White Blood Count* 6.93 K/uL (4.50-11.00)
[2025-07-12 17:08] LABS: Slide Review Reflex No
--- NOTE | 2025-07-12 17:15 | ED_ITS ---
HPI - SOB/Dyspnea General Date Seen: 07/12/25 Chief Complaint: Shortness of Breath/Dyspnea Stated Complaint: Acute SOB, Dr. Sanchez sent to ER Time Seen by Provider: 07/12/25 15:35 Source: patient Mode of arrival: ambulatory Limitations: no limitations History of Present Illness HPI Narrative: Patient is a 20-year-old female currently 34 weeks with history of depression, panic attacks presenting to the emergency department for shortness of breath. She states the shortness of breath has been going on throat her 3rd trimester but seems to be getting worse. She does state clean on her right side seems to make the shortness of breath worse. Also notices after she eats. She has not noticed any chest pain. She was at her regular OB appointment today when she was told to come to the ED for evaluation. She denies any history of blood clots. Denies any family history of clotting disorders or blood clots. She denies hemoptysis, history of cancer, recent travel, lower extremity swelling, recent surgeries. States she is not on any hormonal therapy. The symptoms like this before. States he currently feels mildly short of breath. Denies any lightheadedness. Denies fevers, chills, weakness, numbness, headache, vision changes, abdominal pain, diarrhea, constipation. No other concerns no at this time. Related Data Home Medications ?Medication ?Instructions ?Recorded ?Confirmed docosahexaenoic acid 200 mg mg PO 01/25/25 07/12/25 capsule ( DHA) Previous Rx's ?Medication ?Instructions ?Recorded epinephrine 0.3 mg/0.3 mL 0.3 ml IM ONCE #1 ea 2 injection, auto-injector (EpiPen 2-Kt) ferrous sulfate 325 mg (65 mg 325 mg PO .QMWF #30 tabs 06/15/25 iron) tablet omeprazole 20 mg capsule,delayed 20 mg PO QDAY 12 week s #84 caps 07/12/25 release Allergies Allergy/AdvReac Type Severity Reaction Status Date / Time banana Allergy Severe itchy Verified 07/12/25 17:34 throat carrot Allergy Severe itchy Verified 07/12/25 17:34 throat melon Allergy Severe itchy Verified 07/12/25 17:34 throat peach Allergy Severe itchy Verified 07/12/25 17:34 throat pineapple Allergy Severe itchy Verified 07/12/25 17:34 throat tomato Allergy Severe itchy Verified 07/12/25 17:34 throat watermelon Allergy Intermediate Verified 07/12/25 17:34 amoxicillin Allergy Unknown Verified 07/12/25 17:34 avacodo Allergy Severe itchy Uncoded 07/12/25 17:34 throat Review of Systems Status of ROS: Reports: 10 or more systems reviewed and unremarkable except as noted in History and below PFSH PFSH Medical History Abnormal uterine bleeding (AUB) ?N93.9 - Abnormal uterine and vaginal bleeding, unspecified (ICD-10) Heart murmur ?R01.1 - Cardiac murmur, unspecified (ICD-10) Insomnia ?G47.00 - Insomnia, unspecified (ICD-10) Depression ?F32.A - Depression, unspecified (ICD-10) Anxiety ?F41.9 - Anxiety disorder, unspecified (ICD-10) Serotonin syndrome ?G25.79 - Other drug induced movement disorders (ICD-10) Intentional overdose ?T50.902A - Poisoning by unspecified drugs, medicaments and biological substances, intentional self-harm, initial encounter (ICD-10) History of syncope ?Z87.898 - Personal history of other specified conditions (ICD-10) History of posttraumatic stress disorder (PTSD) ?Z86.59 - Personal history of other mental and behavioral disorders (ICD-10) History of attention deficit hyperactivity disorder (ADHD) ?Z86.59 - Personal history of other mental and behavioral disorders (ICD-10) Surgical History [place] teeth extracted ?K08.409 - Partial loss of teeth, unspecified cause, unspecified class (ICD- 10) Family History Family/Other Brain aneurysm Mother Anxiety and depression Father Anxiety and depression Bipolar disorder Father Alcohol dependence Drug dependence Mother FH: mental illness Social History Narrative: Single, 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 Nonsmoker. No alcohol use. What is your current living situation?: I presently have a place to live Problems where you live: no known problems and declined to answer In the past 12 months, utilities in danger of being shut off: no In past 12 months, lack of transportation kept you from medical appts, meetings, work, or getting things needed for daily living: no In the past 12 mos, have been you worried that your food would run out before you had money to buy more?: never true In the past 12 mos, the food you bought just didn't last and you didn't have money to buy more?: never true Smoking Status: Never smoker Do you use any of these nicotine containing products: Vaping Products Second hand tobacco smoke exposure: No How often do you have a drink containing alcohol: never AUDIT-C Alcohol total score: 0 Non-prescribed substance use: marijuana (any form) How often does anyone, including family, friends and others, physically hurt you : never How often does anyone, including family, friends and others, insult or talk down to you: never How often does anyone, including family, friends and others, threaten you with harm: never How often does anyone, including family, friends and others, scream or curse at you: frequently service: No Health Related Social Needs: Other personal risk factors, not elsewhere classified (Z91.89) Exam Narrative: Exam Narrative: Const: Well-nourished, Well-developed, in mild distress Eyes: PERRL, no conjunctival injection, and symmetrical lids HENT: Atraumatic external nose and ears. Moist mucous membranes. Neck: Symmetric, trachea midline, No thyromegaly. CVS: RRR, No murmurs or gallops. Peripheral pulses 2+ and equal in all extremities RESP: Unlabored respiratory effort. Clear to auscultation bilaterally. GI: Nontender/Nondistended, No rebound or guarding. Gravid uterus MSK:Extremities w/o deformity, Normal Active ROM Skin: Warm, Dry. No rashes or lesions. Neuro: Normal Muscle tone, No focal neurological deficits. Psych: Awake, Alert, & Oriented x3. Appropriate mood and affect. Const: Vital Signs, click to edit/add: Vital Signs - 24 hr 07/12/25 15:16 Temperature 97.4 F L Pulse Rate [Right Pulse Oximeter] 93 Respiratory Rate 16 Blood Pressure [Ri ght Upper Arm] 129/93 H Pulse Oximetry 100 Oxygen Delivery Me thod Room Air Course Vital Signs Vital signs: Initial Vital Signs Temperature 97.4 F L 07/12/25 15:16 Temperature Source Temporal Artery Scan 07/12/25 15:16 Pulse Rate 93 07/12/25 15:16 Pulse Rhythm Regular 07/12/25 15:16 Pulse Strength 3+ Normal 07/12/25 15:16 Respiratory Rate 16 07/12/25 15:16 Blood Pressure 129/93 H 07/12/25 15:16 Blood Pressure Mean 105 07/12/25 15:16 Blood Pressure Position Sitting 07/12/25 15:16 Pulse Oximetry 100 07/12/25 15:16 Oxygen Delivery Method Room Air 07/12/25 15:16 Vital Signs Temperature 97.4 F L 07/12/25 15:16 Pulse Rate 93 07/12/25 15:16 Respiratory Rate 16 07/12/25 15:16 Blood Pressure 129/93 H 07/12/25 15:16 Pulse Oximetry 100 07/12/25 15:16 Oxygen Delivery Method Room Air 07/12/25 15:16 Temperature 97.4 F L 07/12/25 15:16 Pulse Rate 93 07/12/25 15:16 Respiratory Rate 16 07/12/25 15:16 Blood Pressure 129/93 H 07/12/25 15:16 Pulse Oximetry 100 07/12/25 15:16 Oxygen Delivery Method Room Air 07/12/25 15:16 MDM - SOB/Dyspnea MDM Narrative Medical decision making narrative: Patient is a 20-year-old female presenting to the emergency department for shortness of breath. The differential diagnosis of shortness of breath is broad and includes common etiologies such as COPD, asthma, pneumonia, viral syndrome, etc. More serious etiologies considered include PE, CHF, coronary artery disease, pneumothorax, aortic dissection, aortic aneurysm. Will do a D-dimer check for signs of PE. She looks otherwise stable my concern for a dissection or aortic aneurysm or low. When the doing chest imaging pending D-dimer results. Also help look for pneumothorax or pneumonia. Will do troponin and EKG to look for cardiac abnormalities. Symptoms could be from GERD and or pressure from the growing uterus. Will order CBC, viral swabs, BMP, VBG. D-dimer is elevated at 2.89. CTA of the chest will be ordered. I spoke to her about stat CTA of the chest during and she is agreeable to do the CTA. EKG and troponin show no acute concerning abnormalities. EKG interpreted by myself independently. CTA of the chest shows no acute concerning abnormalities. I do not have a clear cause of her shortness of breath at this time. Rest of her lab work does not show any concerning abnormalities. Her hemoglobin slightly low at 9.8 but this is a known issue for her and she has been told to increase her iron supplements recently. Sodium was slightly low at 130 but is unlikely to be causing her symptoms. Viral swabs are negative. EKG and troponin showed no concerning abnormalities. Considering length of symptoms repeat troponin is not necessary. She is safe for discharge. She is agreeable to this plan. Lab Data Labs: Lab Results 07/12/25 07/12/25 07/12/25 Range/Units 15:29 16:45 17:21 WBC 6.93 (4.50-11.00) K/uL RBC 3.71 L (4.00-5.20) m/uL Hgb 9.8 L (12.0-16.0) gm/dL Hct 31.8 L (33.0-51.0) % MCV 86 (80-100) fL MCH 26 (26-34) pg MCHC 31 L (32-36) gm/dL RDW Coeff of Laisha 12.7 (11.5-15.5) % Plt Count 156 (140-440) K/uL Neut % (Auto) 59.4 (42.0-72.0) % Lymph % (Auto) 28.9 (20-44) % Crosby % (Auto) 8.4 (0.0-11.0) % Eos % (Auto) 0.6 (0.0-7.0) % Baso % (Auto) 0.1 (0.0-3.0) % Neut # (Auto) 4.12 (1.7-7.0) K/uL Lymph # (Auto) 2.00 (0.90-2.90) K/uL Crosby # (Auto) 0.60 (0.00-0.90) K/UL Eos # (Auto) 0.04 (0.00-0.50) K/uL Baso # (Auto) 0.01 (0.00-0.30) K/uL Abs Immat Gran (auto) 0.18 (0.00-0.30) K/uL Imm/Tot Granulo (auto) 2.6 % D-Dimer Quant (PE/DVT) 2.89 H (0.00-0.50) ug/ml VBG pH 7.372 (7.32-7.43) VBG pCO2 45 (40-50) mmHG VBG pO2 31.8 (25-47) mmHG VBG HCO3 26 (21-28) mmol/L Sodium 130 L (135-149) mmol/L Potassium 4.0 (3.6-5.1) mmol/L Chloride 101 (96-114) mmol/L Carbon Dioxide 23 (20-32) mmol/L Anion Gap 6 L (7-15) mEq/L BUN 5 (5-24) mg/dL Creatinine 0.5 (0.5-1.5) mg/dL Estimated GFR 137 ml/min Glucose 102 (60-115) mg/dL Calcium 8.8 (8.4-10.6) mg/dL POC Troponin I High Sensi < 2.9 L (2.9-13.0) pg/mL SARS-CoV-2 (PCR) Negative SARS-CoV-2 (Negative) Influenza Type A (PCR) Negative PCR FLU A (Negative) Influenza Type B (PCR) Negative PCR FLU B (Negative) RSV (PCR) Negative PCR RSV (Negative) Imaging Data CTA chest: Attestation: I have reviewed the pertinent imaging results. Radiologist's impression: No pulmonary embolism or other findings to explain the history of acute onset shortness of breath. No significant incidental findings. Please note that all CT scans at this facility use dose modulation, iterative reconstruction, and/or weight-based dosing when appropriate to reduce radiation dose to as low as reasonably achievable. Dictated by Jackson Torres MD @ 07/12/2025 5:59:00 PM ECG Data Attestation: I personally reviewed and interpreted this ECG as follows: Prior ECG tracings: available for review Interpretation: Normal sinus rhythm with a rate of 89 beats per minute, normal intervals, normal axis, no ST or T-wave abnormalities. Discharge Plan Discharge Clinical Impression: Shortness of breath during Patient Disposition: Home, Self-Care Condition: Stable Instructions: Shortness of Breath (ED) Additional Instructions: Return to emergency department for new or worsening symptoms. Follow up with the primary care provider and/or Ob provider. Symptoms are very well likely from your pushing on your organs. Prescriptions: No Action epinephrine [EpiPen 2-Kt] 0.3 mg/0.3 mL auto-injector 0.3 ml IM ONCE Qty: 1 1RF Rx Instructions: as a single dose; may repeat once DHA 200 mg capsule PO ferrous sulfate 325 mg (65 mg iron) tablet 325 mg PO .QMWF Qty: 30 0RF omeprazole 20 mg capsule,delayed release(DR/EC) 20 mg PO QDAY 84 Days Qty: 84 0RF Follow Up/Referrals: Trixie Hubbard MD [Primary Care Provider, Family Practice] Stand Alone [facility] Inst[facility] Procedures ABG Interpretation ABG Results: 07/12/25 16:45 VBG pH 7.372 VBG pCO2 45 VBG pO2 31.8 VBG HCO3 26
[2025-07-12 17:22] LABS: D Dimer Quantitative* 2.89 ug/ml (0.00-0.50)
[2025-07-12 17:24] LABS: Chloride* 101 mmol/L (96-114); Sodium* 130 mmol/L (135-149)
[2025-07-12 17:25] LABS: Potassium* 4.0 mmol/L (3.6-5.1)
--- NOTE | 2025-07-12 17:25 | CRLHL7_ITS ---
For Patients: As a result of the Century Cures Act, medical imaging exams and procedure reports are released immediately into your electronic medical record. You may view this report before your referring provider. If you have questions, please contact your health care provider. INDICATION: Acute onset shortness of breath in the setting of . COMPARISON: None available. TECHNIQUE: CT pulmonary angiography with 95 cc of Isovue 370 intravenous contrast. Reconstructed multiplanar MIP series were done. Please note that all CT scans at this facility use dose modulation, iterative reconstruction, and/or weight-based dosing when appropriate to reduce radiation dose to as low as reasonably achievable. FINDINGS: THORAX Pulmonary Arterial Vasculature: Opacification of the pulmonary arterial tree is adequate for assessment of pulmonary embolism. No pulmonary embolism. Visualized Lower Neck: No lower cervical adenopathy. Lungs: No significant pulmonary findings. Pleura: No pleural effusion. No pneumothorax. Mediastinum: Thoracic aorta and pulmonary trunk are normal in caliber. Heart and pericardium are without significant findings. Trachea and esophagus are normal in appearance. No mediastinal lymphadenopathy. ABDOMEN Visualized Upper Abdomen: No significant findings. SKELETON AND BODY WALL No acute or significant incidental findings. IMPRESSION: No pulmonary embolism or other findings to explain the history of acute onset shortness of breath. No significant incidental findings. Please note that all CT scans at this facility use dose modulation, iterative reconstruction, and/or weight-based dosing when appropriate to reduce radiation dose to as low as reasonably achievable. Dictated by Jackson Torres MD @ 07/12/2025 5:59:00 PM (Electronically Signed)
[2025-07-12 17:27] LABS: Blood Urea Nitrogen* 5 mg/dL (5-24); Creatinine* 0.5 mg/dL (0.5-1.5); Estimated Glomerular Filt Rate 137 ml/min
[2025-07-12 17:28] LABS: Anion Gap 6 mEq/L (7-15); Calcium* 8.8 mg/dL (8.4-10.6); Carbon Dioxide* 23 mmol/L (20-32); Glucose* 102 mg/dL (60-115)
[2025-07-12 18:11] LABS: PCR FLU A Negative PCR FLU A (Negative); PCR FLU B Negative PCR FLU B (Negative); PCR RSV Negative PCR RSV (Negative); SARS PCR* Negative SARS-CoV-2 (Negative)
== END 2025-07-12 18:29 | disposition home or self-care (01) ==
PROVIDERS: Emergency Provider Student in an Organized Health Care Education/Training Program; PCP Family Medicine
DX: O99.513 Diseases of the respiratory system complicating pregnancy, third trimester (principal); R06.02 Shortness of breath; Z3A.34 34 weeks gestation of pregnancy
CPT/HCPCS: 36415; 71275; 80048; 82803; 84484; 85025; 85379; 87631; 93005; 99284; 99285; Q9967

== ENCOUNTER 2025-07-27 06:59 | Emergency (ER) | payer BC, SELFPAY ==
--- OUTSIDE RECORDS SUMMARY | 2025-07-25 19:27 | XMS_ITS | Encounter Summary ---
Author Organization [facility] Address [address] [place] [address] Care Team Providers Care Rn Patient Services Name Role Phone None Reported, Pcp Primary Care Provider Unavail able Reason for Visit * ReasonCommentsSore ThroatPatient presents with complaints of 2 days of sore throat and what she describes as swelling. She denies fevers. Encounter Details DateTypeDepartmentCare Team (Latest Contact Info)Uvuqkigbczh41/29/2025 7:27 PM ENVIRONMENTAL ENGINEERING ASSISTANT - 07/25/2025 8:29 PM CSTEmergency [facility] [address] [place] [phone] Rosita Melendez, ENVIRONMENTAL INSPECTOR, C.N.P. [address] [place] [address] [phone] Tonsillitis Acute (Primary Dx) Discharge Disposition: Home or Self Care Social History Tobacco UseTypesPacks/DayYears UsedDateSmoking Tobacco: Never Tobacco Cessation:Counseling Given: Not Answered Estimated Date of RgaitpgdJzjqqdcePzk78/25/2026Sex and Gender InformationValueDate RecordedSex Assigned at BirthNot on fileLegal SexFemale 02/18/2025 3:08 PM CDTGender IdentityNot on fileSexual OrientationNot on file documented as of this encounter Last Filed Vital Signs Vital SignReadingTime TakenCommentsBlood Pflshhhf789/8012/ 7:12 PM ENVIRONMENTAL ENGINEERING ASSISTANT Zwmfo956607/25/2025 7:12 PM BBTEzbwgtmjozb86.2 ??C (97.2 ??F)07/25/2025 7:12 PM CSTRespiratory Inhv6463 7:12 PM CSTOxygen Isqaajrkxo96%07/25/2025 7:12 PM CSTInhaled Oxygen Concentration--Ucjzyy47 kg (150 lb)07/25/2025 7:10 PM ENVIRONMENTAL ENGINEERING ASSISTANT Height--Body Mass Index--documented in this encounter Functional Status * ED Fall Risk Assessment ToolQuestionAnswerDate of AssessmentAuthorHistory of Falling in Last Three Months Including Since Swpasdpyx628/29/2025 7:13 PM Pam Masters R.N.Confusion or Cbxwxldzitliti031/29/2025 7:13 PM Pam Love R.N.Intoxicated or Ebkvhav838 7:13 PM Pam Love R.N.Impaired Fliq965 7:13 PM Pam Love R.N.Mobility Assist Device Nihx807 7:13 PM Pam Love R.N.Altered Elimination0 07/25/2025 7:13 PM Pam Love R.N.Fall Risk Cgwwg760 7:13 PM Pam Love R.N. * Abuse IndicatorsQuestionAnswerDate of AssessmentAuthorIs there a history, concern, or exposure to physical, emotional, sexual, financial abuse, neglect or domestic violence?No07/25/2025 7:13 PM Pam Love R.N.Information XmclzuLyisufi28/29/2025 7:13 PM Pam Love R.N. * Additional Fall Risk IndicationQuestionAnswerDate of AssessmentAuthor Clinically assessed at higher fall risk?No07/25/2025 7:13 PM Pam Love R.N. * Pain AssessmentQuestionAnswerDate of AssessmentAuthorResponse to Interventions Reports no side glteknr8507/25/2025 7:10 PM Pam Love R.N.Pain UkbzqcgqPhsqhp39/29/2025 7:10 PM Pam Love R.N.Pain Interventions Rest07/25/2025 7:10 PM Pam Love R.N.Pain DescriptorsAching;Sore 07/25/2025 7:10 PM Pam Love R.N.Pain CajfrQxfajst97/29/2025 7:10 PM Pam Love R.N.Pain FrequencyConstant/vzcemewbso97/29/2025 7:10 PM Pam Love R.N.Patient's Stated Pain Goal0 No pain07/25/2025 7:10 PM Pam Love R.N.Pain TypeAcute pain07/25/2025 7:10 PM Pam Love R.N.Clinical ProgressionGradually owvdxrgco35/29/2025 7:10 PM Pam Love R.N.Pain Tssaw447 7:10 PM Pam Love R.N. * Fall Risk Scale and AssessmentsQuestionAnswerDate of AssessmentAuthorFall Risk ScaleED Fall Risk Assessment Tool07/25/2025 7:13 PM Pam Love R.N. documented as of this encounter Discharge Instructions * Discharge Instructions* Rosita Melendez APRN, C.N.P. - 07/25/2025 8:22 PM ENVIRONMENTAL ENGINEERING ASSISTANT Continue cautious monitoring. Saltwater rinses as discussed. Magic mouthwash as discussed. Seek immediate medical attention with any difficulty swallowing, drooling, change in voice tone, orany other emergent urgent concern. RONMENTAL ENGINEERING ASSISTANT * Attachments The following attachments cannot be sent through Care Everywhere. * Tonsillitis ([place]kinan) * Peritonsillar Cellulitis ([place]kinan) documented in this encounter Medications at Time of Discharge MedicationSigDispense QuantityRefillsLast FilledStart DateEnd Date aspirin 81 mg chewable tablet Chew 81 mg daily. rzantev-Ac-pfhj-FA (Vinate One) 60 mg iron-1 mg per tablet Take 1 tablet by mouth daily. diphenhydramine-lidocaine 2 %-antacid (mw) Take 5-10 mL by mouth 4 (four) times a day after meals and bedtime. Hold in mouth for 1 minute.Do not eat or drink for 15-30 minutes after use. 480 mL 07/25/2025documented as of this encounter Progress Notes * Rosita Melendez APRN, C.N.P. - 07/25/2025 8:28 PM CST The patient verbally consented to an audio recording of their visit to assist with the completion of documentation. SUBJECTIVE CHIEF COMPLAINT/REASON FOR VISIT Sore Throat (Patient presents with complaints of 2 days of sore throat and what she describes as swelling. She denies fevers. ) HISTORY OF PRESENT ILLNESS History of Present Illness Callie Coburn is a 20 year old female who presents with a sore throat and difficulty swallowing. Symptoms began approximately two days ago with a mild sore throat, which has progressed to increased difficulty swallowing due to pain. She is able to drink some water, although it is challenging dueto the pain, and she is not drinking as much as she should. She has not taken any medications such as acetaminophen for her sore throat. She is currently , with a due date of August 21. She has no known history of strep throat. No body aches, fever, ear pain, cough, congestion, or runny nose. REVIEW OF SYSTEMS Negative unless noted above. OBJECTIVE Initial Vitals Temperature 07/25/251911 36.2 ??C Pulse Rate 07/25/251911 95 Heart Rate -- Resp Rate 07/25/251911 18 Blood Pressure 07/25/251911 126/80 SpO2 07/25/251911 98 % Pain Score 07/25/251909 9 PHYSICAL EXAMINATION Physical Exam HEENT: Tonsils enlarged with exudate. Uvula is active and intact. Constitutional: Nursing note and vitals reviewed. No distress. HENT: Head: Normocephalic. Mouth/Throat: Uvula is midline. Mucous membranes are moist. No oral lesions. No uvula swelling. Tonsils are 2+ on the right. Tonsils are 2+ on the left. Tonsillar exudate. Dental: Good dentition. Skin: She is not diaphoretic. ASSESSMENT/PLAN Results for orders placed or performed during the hospital encounter of 07/25/25 Group A Streptococcus PCR, Throat Collection Time: 07/25/25 7:14 PM Specimen: Throat; Swab Result Value Ref Range Strep Group A, PCR, POCT Negative Negative Assessment & Plan Acute tonsillitis Bilateral tonsillar enlargement with exudate. Negative strep test. - Prescribed Magic Mouthwash four times daily after meals. - Instructed on salt water rinses before using Magic Mouthwash. - Advised to avoid sharing eating or drinking items and to wash hands frequently. To prevent spreadof infection. - Instructed to avoid contact with infants, elderly, or immunocompromised individuals until symptoms resolve. - Advised to seek emergency care if increased difficulty swallowing, drooling, or inability to speak occurs. - Encouraged sips of water and liquids to maintain hydration. , third trimester Third trimester may increase susceptibility to infections. - Advised on precautions to avoid spreading infection, especially around vulnerable populations. Final Diagnoses: as of 07/25/252027 Tonsillitis Acute PRIMARY DIAGNOSIS Tonsillitis Acute [J03.90] Pleasant 20-year-old female presents to urgent care today with concerns of sore throat. On exam tonsils are impressive 2+ with exudates. Strep test is negative. Continue symptomatic relief measures. Maintain adequate hydration. Continue cautious monitoring. We did review strict return to care precautions. I did give her information on Maya tonsillar cellulitis as well to be aware of what to watch for. Verbally agrees and understands today's plan of care. Discharged in stable independent ambulatory condition. Rosita Melendez APRN, C.N.P. 07/25/252031 RONMENTAL ENGINEERING ASSISTANT documented in this encounter Plan of Treatment Not on file documented as of this encounter Procedures Procedure NamePriorityDate/TimeAssociated DiagnosisCommentsGROUP A STREP PCR, VALJFYSirnmpa62/29/2025 7:14 PM ENVIRONMENTAL ENGINEERING ASSISTANT documented in this encounter Results * Group A Streptococcus PCR, Throat (07/25/2025 7:14 PM ENVIRONMENTAL ENGINEERING ASSISTANT)ComponentValueRef RangeTest MethodAnalysis TimePerformed AtPathologist SignatureStrep Group A, PCR, BIAYGczsxctzXsvsqfma52/29/2025 7:15 PM CSTNPRGSpecimen (Source)Anatomical Location / LateralityCollection Method / VolumeCollection TimeReceived Time Swab (Throat)07/25/2025 7:14 PM CST07/25/2025 7:24 PM ENVIRONMENTAL ENGINEERING ASSISTANT Narrative Authorizing ProviderResult TypeResult StatusRosita Melendez APRN C.N.P.LAB MICROBIOLOGY - GENERAL ORDERABLESFinal ResultPerforming OrganizationAddress City/State/ZIP CodePhone Number [facility] [address] [place] [address], [facility] NPRG [facility] [address] [place] [address] documented in this encounter Visit Diagnoses Diagnosis Tonsillitis Acute- Primary documented in this encounter Care Teams Team MemberRelationshipSpecialtyStart DateEnd Date None Reported, Pcp PCP - GeneralFamily Fqawboki77/29/25documented as of this encounter
--- OUTSIDE RECORDS SUMMARY | 2025-07-27 07:01 | XMS_ITS | Clinical Summary ---
Author Organization [place] Address [facility] [place] [address] Care Team Providers Care Community Resource Officer Name Role Phone No Ref-Primary, Physician Primary Care Provider Social History Tobacco UseTypesPacks/DayYears UsedDateSmoking Tobacco: Never Assessed Estimated Date of ZjrnfprnRbblrenkGwr78/26/2026ased on UltrasoundSex and Gender InformationValueDate RecordedSex Assigned at BirthNot on fileLegal SexFemale 04/08/2025 9:38 AM CDTGender IdentityNot on fileSexual OrientationNot on file Plan of Treatment Health MaintenanceDue DateLast DoneCommentsADVANCE CARE VGNEYXBV2004ANNUAL REVIEW OF HM QXDXPI02 2004CHLAMYDIA VOLTLAFHS2004YEARLY PREVENTIVE VISIT2007HIV MVBWEEIZT35/23/2019MENINGITIS B VACCINE (1 of 2 - Standard) 2020HEPATITIS C LOCJVUMAV68/23/2022PHQ-2 (once per calendar year) 2024MATERNAL SCREENING HXCAHIAHRB85/30/2025COVID-19 VACCINE ( season), 07/27/2021, 12/08/2020, Additional history exists INFLUENZA VACCINE (#1)/, 05/24/2022, 05/18/2021, Additional history existsOBGCT (OB)05/02/2025PAP1TDAP VACCINE () 05/23/2025RSV VACCINE (1 - Risk 1-dose series)06/27/2025GROUP B STREP YMBFKCSMW37/29/2025DTAP/TDAP/TD VACCINE (6 - Td or Tdap)7002/27/2017, 06/08/2010, 2004, Additional history existsZOSTER VACCINE (1 of 2) 4PNEUMOCOCCAL VACCINE: PEDIATRICS (0 to 5 YEARS) AND AT-RISK PATIENTS (6 to 49 YEARS)Aged Out06/04/2005, 2004, 2004, Additional history existsNo longer eligible based on patient's age to complete this topicHEPATITIS B EJHOXBXDvovdqdid95/02/2015, 06/20/2014, 03/21/2008HPV VACCINECompleted 12/29/2017, 02/27/2017MENINGITIS CNTWUWJGcdvmxxcq82/10/2022, 02/27/2017 Insurance * Guarantor: Callie Coburn TypeRelation to PatientDate of BirthPhone Billing AddressPersonal/VbmwrvOoyc[address] [place] [address] * Guarantor: Callie Coburn TypeRelation to PatientDate of BirthPhone Billing AddressPersonal/EydutzXrwu[address] [place] [address] Care Teams Team MemberRelationshipSpecialtyStart DateEnd Date No Ref-Primary, Physician PCP - General04/08/25
--- OUTSIDE RECORDS SUMMARY | 2025-07-27 07:01 | XMS_ITS | Clinical Summary ---
Author Organization [facility] Address [address] [place] [address] Care Team Providers Care Mammal Control Agent Name Role Phone None Reported, Pcp Primary Care Provider Unavail able Source Comments Patient records contain information from all sites at [facility]. For routine questions regarding patient records, call [phone] during business hours, M-F 8:00 AM - 5:00 PM Central Time. Record requests for emergency care only can be directed to [phone] at any time.[facility] Allergies Active AllergyReactionsCriticalityNoted DateCommentsAmoxicillinHives only, no other systemic kvrensxj63/29/2025 Medications MedicationSigDispense QuantityRefillsLast FilledStart DateEnd DateStatus cadyiep-At-ilgr-FA (Vinate One) 60 mg iron-1 mg per tablet Take 1 tablet by mouth daily.Active aspirin 81 mg chewable tablet Chew 81 mg daily.Active diphenhydramine-lidocaine 2 %-antacid (mw) Take 5-10 mL by mouth 4 (four) times a day after meals and bedtime. Hold in mouth for 1 minute.Do not eat or drink for 15-30 minutes after use. 480 mL 5Active Encounters DateTypeDepartmentCare JvwgNnomolaqfim50/29/2025 7:27 PM HEALTH AND FITNESS PROFESSOR - 07/25/2025 8:29 PM CSTEmergency [facility] [address] [place] [phone] Rosita Melendez APRN, C.N.P. Tonsillitis Acute (Primary Dx) Discharge Disposition: Home or Self Carefrom Last 3 Months Social History Tobacco UseTypesPacks/DayYears UsedDateSmoking Tobacco: Never Tobacco Cessation:Counseling Given: Not Answered Estimated Date of TcmeujkqOemybymgCen93/25/2026Sex and Gender InformationValueDate RecordedSex Assigned at BirthNot on fileLegal SexFemale 02/18/2025 3:08 PM CDTGender IdentityNot on fileSexual OrientationNot on file Last Filed Vital Signs Vital SignReadingTime TakenCommentsBlood Vbklxmrq287/801 7:12 PM HEALTH AND FITNESS PROFESSOR Zuzoq347807/25/2025 7:12 PM YWWSiwiltigubx64.2 ??C (97.2 ??F)07/25/2025 7:12 PM CSTRespiratory Hylt3860 7:12 PM CSTOxygen Qlbnhkbxhl77%07/25/2025 7:12 PM CSTInhaled Oxygen Concentration--Tmtzhd60 kg (150 lb)07/25/2025 7:10 PM HEALTH AND FITNESS PROFESSOR Height--Body Mass Index-- Plan of Treatment Not on file Procedures Procedure NamePriorityDate/TimeAssociated DiagnosisCommentsGROUP A STREP PCR, HVFZPJJanxdlt07/29/2025 7:14 PM HEALTH AND FITNESS PROFESSOR from Last 3 Months Results * Group A Streptococcus PCR, Throat (07/25/2025 7:14 PM HEALTH AND FITNESS PROFESSOR)ComponentValueRef RangeTest MethodAnalysis TimePerformed AtPathologist SignatureStrep Group A, PCR, LCJFNbqtbayoVienvyxq47/29/2025 7:15 PM CSTNPRGSpecimen (Source)Anatomical Location / LateralityCollection Method / VolumeCollection TimeReceived Time Swab (Throat)07/25/2025 7:14 PM CST07/25/2025 7:24 PM HEALTH AND FITNESS PROFESSOR Narrative Authorizing ProviderResult TypeResult StatusPasteven Melendez APRN, C.N.P.LAB MICROBIOLOGY - GENERAL ORDERABLESFinal ResultPerforming OrganizationAddress City/State/ZIP CodePhone Number [facility] [address] [place] [address], [facility] [address] [place] [address] from Last 3 Months Insurance * Guarantor: Cuba Rowe TypeRelation to PatientDate of BirthPhone Billing AddressPersonal/KztpytCqhg[address] [place] [address] Care Teams Team MemberRelationshipSpecialtyStart DateEnd Date None Reported, Pcp PCP - Generalmily Vyxbbpoi95/29/25
[2025-07-27 07:10] VITALS: BP 113/74; PULSE 113; RESP 18; TEMP 36.6; O2SAT 98
--- NOTE | 2025-07-27 07:54 | ED.GENADULT ---
HPI - General Adult General Chief complaint: Sore Throat <Vandana Spears MD - Last Filed: 07/28/25 23:59> Stated complaint: sore throat <Vandana Separs MD - Last Filed: 07/28/25 23:59> Time Seen by Provider: 07/27/25 07:37 <Vandana Spears MD - Last Filed: 07/28/25 23:59> Source: patient <Vandana Spears MD - Last Filed: 07/28/25 23:59> Mode of arrival: ambulatory <Vandana Spears MD - Last Filed: 07/28/25 23:59> Limitations: no limitations <Vandana Spears MD - Last Filed: 07/28/25 23:59> History of Present Illness HPI narrative: 20-year-old female presents to the emergency department for evaluation of sore throat for 3 days. She is 36 weeks . No signs of labor. No bleeding or leakage of fluid. No right upper quadrant pain. She feels a little short of breath but attributes that to the , does not feel like it has rapidly changed over the last few days. She was evaluated a day and half ago at an urgent care in another town, strep test was negative. She was prescribed Magic mouthwash which she states is not helping. It is difficult to hold down fluids. Throat is very sore. No vomiting. No headache. No fever. No prior history of similar symptoms this severe. No sick contacts or known exposures to any particular illness. No prior history of mono. Reports that her past medical history is notable for prior depression and anxiety and she has multiple food allergies. Allergy list is reviewed. Long-term medications are omeprazole iron and she does have access to an EpiPen. ROS is notable for the generalized and HEENT symptoms as above, otherwise denies times 12 systems. <Vandana Spears MD - Last Filed: 07/28/25 23:59> Related Data Home medications: Home Medications ?Medication ?Instructions ?Recorded ?Confirmed docosahexaenoic acid 200 mg mg PO 01/25/25 07/12/25 capsule ( DHA) Previous Rx's ?Medication ?Instructions ?Recorded epinephrine 0.3 mg/0.3 mL 0.3 ml IM ONCE #1 ea 03/06/22 injection, auto-injector (EpiPen 2-Kt) ferrous sulfate 325 mg (65 mg 325 mg PO .QMWF #30 tabs 06/15/25 iron) tablet omeprazole 20 mg capsule,delayed 20 mg PO QDAY 12 weeks #84 caps 07/12/25 release <Vandana Spears MD - Last Filed: 07/28/25 23:59> Allergies/adverse reactions: Allergies Allergy/AdvReac Type Severity Reaction Status Date / Time banana Allergy Severe itchy Verified 07/27/25 07:16 throat carrot Allergy Severe itchy Verified 07/27/25 07:16 throat melon Allergy Severe itchy Verified 07/27/25 07:16 throat peach Allergy Severe itchy Verified 07/27/25 07:16 throat pineapple Allergy Severe itchy Verified 07/27/25 07:16 throat tomato Allergy Severe itchy Verified 07/27/25 07:16 throat watermelon Allergy Intermediate Verified 07/27/25 07:16 amoxicillin Allergy Unknown Verified 07/27/25 07:16 avacodo Allergy Severe itchy Uncoded 07/26/25 11:30 throat <Vandana Spears MD - Last Filed: 07/28/25 23:59> [facility] Medical History: Medical History Abnormal uterine bleeding (AUB) ?N93.9 - Abnormal uterine and vaginal bleeding, unspecified (ICD-10) Heart murmur ?R01.1 - Cardiac murmur, unspecified (ICD-10) Insomnia ?G47.00 - Insomnia, unspecified (ICD-10) Depression ?F32.A - Depression, unspecified (ICD-10) Anxiety ?F41.9 - Anxiety disorder, unspecified (ICD-10) Serotonin syndrome ?G25.79 - Other drug induced movement disorders (ICD-10) Intentional overdose ?T50.902A - Poisoning by unspecified drugs, medicaments and biological substances, intentional self-harm, initial encounter (ICD-10) History of syncope ?Z87.898 - Personal history of other specified conditions (ICD-10) History of posttraumatic stress disorder (PTSD) ?Z86.59 - Personal history of other mental and behavioral disorders (ICD-10) History of attention deficit hyperactivity disorder (ADHD) ?Z86.59 - Personal history of other mental and behavioral disorders (ICD-10) <Vandana Spears MD - Last Filed: 07/28/25 23:59> Surgical History: Surgical History [place] teeth extracted ?K08.409 - Partial loss of teeth, unspecified cause, unspecified class (ICD-10) <Vandana Spears MD - Last Filed: 07/28/25 23:59> Family History: Family History Family/Other Brain aneurysm Mother Anxiety and depression Father Anxiety and depression Bipolar disorder Father Alcohol dependence Drug dependence Mother FH: mental illness <Vandana Spears MD - Last Filed: 07/28/25 23:59> Social History: Social History Narrative: Single, 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 Nonsmoker. No alcohol use. What is your current living situation?: I presently have a place to live Problems where you live: no known problems and declined to answer In the past 12 months, utilities in danger of being shut off: no In past 12 months, lack of transportation kept you from medical appts, meetings, work, or getting things needed for daily living: no In the past 12 mos, have been you worried that your food would run out before you had money to buy more?: never true In the past 12 mos, the food you bought just didn't last and you didn't have money to buy more?: never true Smoking Status: Never smoker Do you use any of these nicotine containing products: Vaping Products Second hand tobacco smoke exposure: No How often do you have a drink containing alcohol: never How often do you have six or more drinks on one occasion: Never AUDIT-C Alcohol total score: 0 Non-prescribed substance use: marijuana (any form) How often does anyone, including family, friends and others, physically hurt you: never How often does anyone, including family, friends and others, insult or talk down to you: never How often does anyone, including family, friends and others, threaten you with harm: never How often does anyone, including family, friends and others, scream or curse at you: frequently service: No Health Related Social Needs: Other personal risk factors, not elsewhere classified (Z91.89) <Vandana Spears MD - Last Filed: 07/28/25 23:59> Exam Const: Vital Signs, click to edit/add: Vital Signs - 24 hr 07/27/25 07:10 Temperature 97.8 F Pulse Rate [Right Pulse Oximeter] 113 H Respiratory Rate 18 Blood Pressure [Ri ght Upper Arm] 113/74 Pulse Oximetry 98 Oxygen Delivery Me thod Room Air <Vandana Spears MD - Last Filed: 07/28/25 23:59> Vital Signs, click to edit/add: Vital Signs - 24 hr 07/27/25 07:10 Temperature 97.8 F Pulse Rate [Right Pulse Oximeter] 113 H Respiratory Rate 18 Blood Pressure [Ri ght Upper Arm] 113/74 Pulse Oximetry 98 Oxygen Delivery Me thod Room Air <Sergio Mitchell DO - Last Filed: 07/27/25 11:36> Documenting provider has reviewed patient's vital signs: yes <Vandana Spears MD - Last Filed: 07/28/25 23:59> Common normals: no apparent distress <Vandana Spears MD - Last Filed: 07/28/25 23:59> General appearance: well kempt <Vandana Spears MD - Last Filed: 07/28/25 23:59> Other: Hot potato voice noted. Does appear without any respiratory distress. <Vandana Spears MD - Last Filed: 07/28/25 23:59> HENMT: Common normals: normocephalic, moist oral mucous membranes and dentition normal <Vandana Spears MD - Last Filed: 07/28/25 23:59> Head and scalp: normocephalic <MD Aguila Nava Last Filed: 07/28/25 23:59> Other: Tonsils are 3+ with deep crypts and white plaques. No ketosis Odor.. <MD Aguila Nava Last Filed: 07/28/25 23:59> Eye: Common normals: conjunctivae normal <MD Aguila Nava Last Filed: 07/28/25 23:59> General eye: normal appearance of both eyes <MD Aguila Nava Last Filed: 07/28/25 23:59> Conjunctiva: conjunctiva(e) normal <MD Aguila Nava Last Filed: 07/28/25 23:59> Neck & C-Spine: Other: Moderate anterior cervical and submandibular lymphadenopathy <MD Aguila Nava Last Filed: 07/28/25 23:59> Resp: Common normals: normal respiratory effort, no use of accessory muscles and clear to auscultation bilaterally <MD Aguila Nava Last Filed: 07/28/25 23:59> Effort & inspection: able to speak in complete sentences <MD Aguila Nava Last Filed: 07/28/25 23:59> Auscultation: clear to auscultation bilaterally <MD Aguila Nava Last Filed: 07/28/25 23:59> Cardio: Common normals: regular rate, regular rhythm, S1 normal heart sound, S2 normal heart sound and no murmurs <MD Aguila Nava Last Filed: 07/28/25 23:59> Rate: regular rate <MD Aguila Nava Last Filed: 07/28/25 23:59> Rhythm: regular rhythm <MD Aguila Nava Last Filed: 07/28/25 23:59> Heart sounds: S1 normal and S2 normal <MD Aguila Nava Last Filed: 07/28/25 23:59> GI: Other: gravid term abdomen. I am unable to palpate liver edge. <MD Aguila Nava Last Filed: 07/28/25 23:59> Extremity: Common normals: normal capillary refill <Vandana Spears MD - Last Filed: 07/28/25 23:59> Psych: Appearance: well kempt <Vandana Spears MD - Last Filed: 07/28/25 23:59> Attitude: engaged <Vandana Spears MD - Last Filed: 07/28/25 23:59> Mood and affect: euthymic mood <Vandana Spears MD - Last Filed: 07/28/25 23:59> Insight: insight good <Vandana Spears MD - Last Filed: 07/28/25 23:59> Judgement: judgment good <Vandana Spears MD - Last Filed: 07/28/25 23:59> Skin: Common normals: no rashes or lesions noted <Vandana Spears MD - Last Filed: 07/28/25 23:59> General skin exam: no rashes or lesions noted <Vandana Spears MD - Last Filed: 07/28/25 23:59> Course Course ED Course: 20-year-old female with exudate of pharyngitis suspicious for mono or other viral process. I do recommend that we repeat the strep test as well as swab for COVID, influenza and RSV. I do recommend that we do a mono test as well. She is tachycardic and I think this is likely secondary to dehydration. I do not want better at an increased risk of labor. Will give 1 L of normal saline while we await mono and basic lab results. Not endorsing any signs of labor. <Vandana Spears MD - Last Filed: 07/28/25 23:59> Vital Signs Vital signs: Initial Vital Signs Temperature 97.8 F 07/27/25 07:10 Temperature Source Temporal Artery Scan 07/27/25 07:10 Pulse Rate 113 H 07/27/25 07:10 Pulse Rhythm Regular 07/27/25 07:10 Pulse Strength 3+ Normal 07/27/25 07:10 Respiratory Rate 18 07/27/25 07:10 Blood Pressure 113/74 07/27/25 07:10 Blood Pressure Mean 87 07/27/25 07:10 Blood Pressure Position Sitting 07/27/25 07:10 Pulse Oximetry 98 07/27/25 07:10 Oxygen Delivery Method Room Air 07/27/25 07:10 Vital Signs Temperature 97.8 F 07/27/25 07:10 Pulse Rate 113 H 07/27/25 07:10 Respiratory Rate 18 07/27/25 07:10 Blood Pressure 113/74 07/27/25 07:10 Pulse Oximetry 98 07/27/25 07:10 Oxygen Delivery Method Room Air 07/27/25 07:10 Temperature 97.8 F 07/27/25 07:10 Pulse Rate 113 H 07/27/25 07:10 Respiratory Rate 18 07/27/25 07:10 Blood Pressure 113/74 07/27/25 07:10 Pulse Oximetry 98 07/27/25 07:10 Oxygen Delivery Method Room Air 07/27/25 07:10 <Vandana Spears MD - Last Filed: 07/28/25 23:59> Initial Vital Signs Temperature 97.8 F 07/27/25 07:10 Temperature Source Temporal Artery Scan 07/27/25 07:10 Pulse Rate 113 H 07/27/25 07:10 Pulse Rhythm Regular 07/27/25 07:10 Pulse Strength 3+ Normal 07/27/25 07:10 Respiratory Rate 18 07/27/25 07:10 Blood Pressure 113/74 07/27/25 07:10 Blood Pressure Mean 87 07/27/25 07:10 Blood Pressure Position Sitting 07/27/25 07:10 Pulse Oximetry 98 07/27/25 07:10 Oxygen Delivery Method Room Air 07/27/25 07:10 Vital Signs Temperature 97.8 F 07/27/25 07:10 Pulse Rate 113 H 07/27/25 07:10 Respiratory Rate 18 07/27/25 07:10 Blood Pressure 113/74 07/27/25 07:10 Pulse Oximetry 98 07/27/25 07:10 Oxygen Delivery Method Room Air 07/27/25 07:10 Temperature 97.8 F 07/27/25 07:10 Pulse Rate 113 H 07/27/25 07:10 Respiratory Rate 18 07/27/25 07:10 Blood Pressure 113/74 07/27/25 07:10 Pulse Oximetry 98 07/27/25 07:10 Oxygen Delivery Method Room Air 07/27/25 07:10 <Serigo Mitchell DO - Last Filed: 07/27/25 11:36> Medications Administered Medications: Discontinued Medications Generic Name Dose Route Start Last Admin Trade Name Freq PRN Reason Stop Dose Admin Dexamethasone 10 mg 07/27/25 11:32 07/27/25 12:05 Dexamethasone 10 Mg/Ml Pf IVP 07/27/25 11:33 10 mg ONCE ONE Administration Sodium Chloride 1,000 mls @ 1,000 mls/hr 07/27/25 07:38 07/27/25 10:12 0.9 % Sodium Chloride 1000 Ml IV 07/27/25 08:37 Infused .Q1H YUE Infusion <Vandana Spears MD - Last Filed: 07/28/25 23:59> Discontinued Medications Generic Name Dose Route Start Last Admin Trade Name Freq PRN Reason Stop Dose Admin Dexamethasone 10 mg 07/27/25 11:32 07/27/25 12:05 Dexamethasone 10 Mg/Ml Pf IVP 07/27/25 11:33 10 mg ONCE ONE Administration Sodium Chloride 1,000 mls @ 1,000 mls/hr 07/27/25 07:38 07/27/25 10:12 0.9 % Sodium Chloride 1000 Ml IV 07/27/25 08:37 Infused .Q1H YUE Infusion <Sergio Mitchell DO - Last Filed: 07/27/25 11:36> Medical Decision Making MDM Narrative Medical decision making narrative: Patient is a 20-year-old female signed out to me pending the rest of her lab work. She is mono positive. She does have elevated liver enzymes rates all mildly elevated her likely from the mono. There is some concern for cholestasis of but she is not having any itchiness or gallbladder pain. Gallbladder ultrasound shows no concerning abnormalities. This was done to make sure there is not any other underlying issue. I did speak to the on-call OB provider, Dr. Oakley, and she states as long as the patient is in having any other symptoms this is most likely just from mono and does not think further OB follow-up specifically for this. Does recommend ultrasound biophysical profile. This was ordered. Dexamethasone was ordered for her sore throat. She is safe for discharge. <Sergio Mitchell DO - Last Filed: 07/27/25 11:36> Lab Data Lab results reviewed: Yes I reviewed the patient's lab results <Vandana Spears MD - Last Filed: 07/28/25 23:59> Lab results narrative: Positive for mono, not unexpected based on clinical appearance <Vandana Spears MD - Last Filed: 07/28/25 23:59> Labs: Lab Results 07/27/25 07/27/25 Range/Units 07:19 07:51 WBC 7.45 (4.50-11.00) K/uL RBC 3.86 L (4.00-5.20) m/uL Hgb 9.9 L (12.0-16.0) gm/dL Hct 31.0 L (33.0-51.0) % MCV 80 (80-100) fL MCH 26 (26-34) pg MCHC 32 (32-36) gm/dL RDW Coeff of Laisha 13.7 (11.5-15.5) % Plt Count 208 (140-440) K/uL Neut % (Auto) 36.3 L (42.0-72.0) % Lymph % (Auto) 53.2 H (20-44) % [place] % (Auto) 7.8 (0.0-11.0) % Eos % (Auto) 0.3 (0.0-7.0) % Baso % (Auto) 0.1 (0.0-3.0) % Neut # (Auto) 2.70 (1.7-7.0) K/uL Lymph # (Auto) 4.00 H (0.90-2.90) K/uL [place] # (Auto) 0.60 (0.00-0.90) K/UL Eos # (Auto) 0.02 (0.00-0.50) K/uL Baso # (Auto) 0.01 (0.00-0.30) K/uL Abs Immat Gran (auto) 0.17 (0.00-0.30) K/uL Imm/Tot Granulo (auto) 2.3 % Sodium 133 L (135-149) mmol/L Potassium 4.1 (3.6-5.1) mmol/L Chloride 102 (96-114) mmol/L Carbon Dioxide 23 (20-32) mmol/L Anion Gap 8 (7-15) mEq/L BUN 4 L (5-24) mg/dL Creatinine 0.5 (0.5-1.5) mg/dL Estimated GFR 137 ml/min Glucose 97 (60-115) mg/dL Lactate 0.9 (0.5-1.9) mmol/L Calcium 8.7 (8.4-10.6) mg/dL Total Bilirubin 1.9 H (0.1-1.5) mg/dL Direct Bilirubin 1.5 H (0.0-0.5) mg/dL AST 62 H (12-35) U/L ALT 63 H (4-35) U/L Alkaline Phosphatase 225 H (40-150) U/L C-Reactive Protein 1.0 (0.5-1.0) mg/dL Total Protein 7.7 (6.0-8.3) g/dL Albumin 3.6 (3.3-5.0) g/dL SARS-CoV-2 (PCR) Negative SARS-CoV-2 (Negative) Monoscreen POSITIVE A (Negative) Influenza Type A (PCR) Negative PCR FLU A (Negative) Influenza Type B (PCR) Negative PCR FLU B (Negative) RSV (PCR) Negative PCR RSV (Negative) Group A Strep DNA NOT DETECTED (Not Detectd) <Vandana Spears MD - Last Filed: 07/28/25 23:59> Lab Results 07/27/25 07/27/25 Range/Units 07:19 07:51 WBC 7.45 (4.50-11.00) K/uL RBC 3.86 L (4.00-5.20) m/uL Hgb 9.9 L (12.0-16.0) gm/dL Hct 31.0 L (33.0-51.0) % MCV 80 (80-100) fL MCH 26 (26-34) pg MCHC 32 (32-36) gm/dL RDW Coeff of Laisha 13.7 (11.5-15.5) % Plt Count 208 (140-440) K/uL Neut % (Auto) 36.3 L (42.0-72.0) % Lymph % (Auto) 53.2 H (20-44) % [place] % (Auto) 7.8 (0.0-11.0) % Eos % (Auto) 0.3 (0.0-7.0) % Baso % (Auto) 0.1 (0.0-3.0) % Neut # (Auto) 2.70 (1.7-7.0) K/uL Lymph # (Auto) 4.00 H (0.90-2.90) K/uL [place] # (Auto) 0.60 (0.00-0.90) K/UL Eos # (Auto) 0.02 (0.00-0.50) K/uL Baso # (Auto) 0.01 (0.00-0.30) K/uL Abs Immat Gran (auto) 0.17 (0.00-0.30) K/uL Imm/Tot Granulo (auto) 2.3 % Sodium 133 L (135-149) mmol/L Potassium 4.1 (3.6-5.1) mmol/L Chloride 102 (96-114) mmol/L Carbon Dioxide 23 (20-32) mmol/L Anion Gap 8 (7-15) mEq/L BUN 4 L (5-24) mg/dL Creatinine 0.5 (0.5-1.5) mg/dL Estimated GFR 137 ml/min Glucose 97 (60-115) mg/dL Lactate 0.9 (0.5-1.9) mmol/L Calcium 8.7 (8.4-10.6) mg/dL Total Bilirubin 1.9 H (0.1-1.5) mg/dL Direct Bilirubin 1.5 H (0.0-0.5) mg/dL AST 62 H (12-35) U/L ALT 63 H (4-35) U/L Alkaline Phosphatase 225 H (40-150) U/L C-Reactive Protein 1.0 (0.5-1.0) mg/dL Total Protein 7.7 (6.0-8.3) g/dL Albumin 3.6 (3.3-5.0) g/dL SARS-CoV-2 (PCR) Negative SARS-CoV-2 (Negative) Monoscreen POSITIVE A (Negative) Influenza Type A (PCR) Negative PCR FLU A (Negative) Influenza Type B (PCR) Negative PCR FLU B (Negative) RSV (PCR) Negative PCR RSV (Negative) Group A Strep DNA NOT DETECTED (Not Detectd) <Sergio Mitchell DO - Last Filed: 07/27/25 11:36> Imaging Data Gallbladder ultrasound: Attestation: I have reviewed the pertinent imaging results. <Sergio Mitchell DO - Last Filed: 07/27/25 11:36> Radiologist's impression: Negative gallbladder ultrasound. Dictated by Tre Davison MD @ 07/27/2025 10:11:32 AM <Sergio Mitchell DO - Last Filed: 07/27/25 11:36> OB BPP: Radiologist's impression: Normal biophysical profile score of 8/8. JOANA PASCAL M.D. <Sergio Mitchell DO - Last Filed: 07/27/25 11:36> Discharge Plan Discharge Clinical Impression: Exudative pharyngitis <Vandana Spears MD - Last Filed: 07/28/25 23:59> Patient Disposition: Home w/ Parent or Adult <Vandana Spears MD - Last Filed: 07/28/25 23:59> Condition: Stable <Vandana Spears MD - Last Filed: 07/28/25 23:59> Instructions: Pharyngitis (ED) <Vandana Spears MD - Last Filed: 07/28/25 23:59> Additional Instructions: Strep and viral swabs are negative here in the emergency department. This is reassuring. Their thousands of viruses that can cause sore throat. You were given IV fluid to help reduce the chance of pre term labor and help with hydration. The remainder of your labs and electrolytes all look okay. I would recommend that you continue Tylenol 1000 mg 3 times daily and continue to push fluids to the best of your ability. Follow-up with your Ob provider if you are having any further signs of dehydration, decreased movement or fevers. For most people, the sore throat come last for 5-10 days. <Vandana Spears MD - Last Filed: 07/28/25 23:59> Activity Level: Activity as Tolerated <Vandana Spears MD - Last Filed: 07/28/25 23:59> Activity as Tolerated <Sergio Mitchell DO - Last Filed: 07/27/25 11:36> Discharge Diet: Regular <Vandana Spears MD - Last Filed: 07/28/25 23:59> Regular <Sergio Mitchell DO - Last Filed: 07/27/25 11:36> Prescriptions: No Action epinephrine [EpiPen 2-Kt] 0.3 mg/0.3 mL auto-injector 0.3 ml IM ONCE Qty: 1 1RF Rx Instructions: as a single dose; may repeat once DHA 200 mg capsule PO ferrous sulfate 325 mg (65 mg iron) tablet 325 mg PO .QMWF Qty: 30 0RF omeprazole 20 mg capsule,delayed release(DR/EC) 20 mg PO QDAY 84 Days Qty: 84 0RF <Vandana Spears MD - Last Filed: 07/28/25 23:59> Follow Up/Referrals: Trixie Hubbard MD [Primary Care Provider, Family Practice] <Vandana Spears MD - Last Filed: 07/28/25 23:59> Stand Alone Forms: MyHealth Info Instructions <Vandana Spears MD - Last Filed: 07/28/25 23:59>
[2025-07-27 08:00] LABS: Lactate* 0.9 mmol/L (0.5-1.9)
[2025-07-27 08:03] LABS: Hematocrit* 31.0 % (33.0-51.0); Hemoglobin* 9.9 gm/dL (12.0-16.0); Immature Granulocytes Abs Auto 0.17 K/uL (0.00-0.30); Immature Granulocytes Pct Auto 2.3 %; Mean Corpuscular HGB Conc 32 gm/dL (32-36); Mean Corpuscular Hemoglobin 26 pg (26-34); Mean Corpuscular Volume 80 fL (80-100); RDW Coefficient of Variation % 13.7 % (11.5-15.5); Red Blood Count* 3.86 m/uL (4.00-5.20); White Blood Count* 7.45 K/uL (4.50-11.00)
[2025-07-27 08:11] LABS: Lymphocytes Absolute Auto 4.00 K/uL (0.90-2.90); Slide Review Reflex No
[2025-07-27 08:16] LABS: Chloride* 102 mmol/L (96-114); Sodium* 133 mmol/L (135-149)
[2025-07-27 08:17] LABS: Albumin* 3.6 g/dL (3.3-5.0); Potassium* 4.1 mmol/L (3.6-5.1)
[2025-07-27 08:19] LABS: Anion Gap 8 mEq/L (7-15); Blood Urea Nitrogen* 4 mg/dL (5-24); Carbon Dioxide* 23 mmol/L (20-32); Creatinine* 0.5 mg/dL (0.5-1.5); Estimated Glomerular Filt Rate 137 ml/min
[2025-07-27 08:20] LABS: Alanine Aminotransferase* 63 U/L (4-35); Alkaline Phosphatase* 225 U/L (40-150); Aspartate Amino Transferase* 62 U/L (12-35); Bilirubin Direct* 1.5 mg/dL (0.0-0.5); Bilirubin Total* 1.9 mg/dL (0.1-1.5); Calcium* 8.7 mg/dL (8.4-10.6); Glucose* 97 mg/dL (60-115); Total Protein* 7.7 g/dL (6.0-8.3)
[2025-07-27 08:33] LABS: Mono Screen* POSITIVE (Negative)
--- NOTE | 2025-07-27 08:59 | CRLHL7_ITS ---
For Patients: As a result of the Century Cures Act, medical imaging exams and procedure reports are released immediately into your electronic medical record. You may view this report before your referring provider. If you have questions, please contact your health care provider. INDICATION: Elevated LFTs. TECHNIQUE: Ultrasound gallbladder limited using fox-scale and color Doppler images. COMPARISON: None FINDINGS: Gallbladder: No stones or sludge. Normal wall thickness. No pericholecystic fluid. Common bile duct: 2 mm. No central intrahepatic biliary dilation. IMPRESSION: Negative gallbladder ultrasound. Dictated by Tre Davison MD @ 07/27/2025 10:11:32 AM (Electronically Signed)
[2025-07-27 09:32] LABS: Strep A DNA Probe* NOT DETECTED (Not Detectd)
[2025-07-27 09:45] LABS: PCR FLU A Negative PCR FLU A (Negative); PCR FLU B Negative PCR FLU B (Negative); PCR RSV Negative PCR RSV (Negative); SARS PCR* Negative SARS-CoV-2 (Negative)
--- NOTE | 2025-07-27 10:11 | CRLHL7_ITS ---
For Patients: As a result of the Cures Act, medical imaging exams and procedure reports are released immediately into your electronic medical record. You may view this report before your referring provider. If you have questions, please contact your health care provider. OBSTETRICAL ULTRASOUND ??? BIOPHYSICAL PROFILE INDICATION: Ashley during . CLINICAL HISTORY: LMP: 11/14/2024 TRINITY by LMP: 08/21/2025 Gestational Age: 36 weeks 3 days PRIOR ULTRASOUND: 07/12/2025 TECHNIQUE: Real-time fox-scale transabdominal imaging of the fetus was performed. FINDINGS: Fetus: Single Cervix: Not visualized positioning: Vertex Amniotic Fluid: 5.6 cm SDP BIOPHYSICAL PROFILE: Gross body movements: 2 tone: 2 Respiratory activity: 2 Amniotic fluid SDP: 2 Total score: 8 Placenta technique: Transabdominal Placenta position: Anterior heart rate: 137 bpm IMPRESSION: Normal biophysical profile score of 8/8. AYUSH PASCAL M.D. Diagnostic Radiologist [email or web address] Transcribed: 11:[address]/Dictated by: Ayush Pascal MD @ 07/27/2025 11:11:00 AM (Electronically Signed)
--- NOTE | 2025-07-27 12:04 | PC.OBNST ---
NST Note NST Note Start: 07/27/25 12:00 Freq: ONCE Status: Active Protocol: Document 07/27/25 12:00 CWP (Rec: 07/27/25 12:04 CWP No Response) NST Note 2 Para (# of births) 0 EDC 08/21/25 Gestational Age In 36 Weeks & 3 Days Weeks & Days Patient Presented Other with Complaint(s) of Other Complaints Presented to ED for evaluation of sore throat Reactive Yes Appropriate for Yes Gestational Age NERIS Vences RNC Date 07/27/25 Reactive Yes Appropriate for Yes Gestational Age NERIS Deng RN Date 07/27/25 OB NST charge Yes Complete NST Note Yes via Write Note The provider's electronic signature indicates the NST is reactive/appropriate for gestational age. *Note to provider: If an addendum is required, open the patient's chart and click on the note under the Nurse/Allied Health tab.
[2025-07-27] MEDS: DEXAMETHASONE 10 MG/ML PF IVP (12:05)
== END 2025-07-27 12:04 | disposition home or self-care (01) ==
PROVIDERS: Emergency Provider Family Medicine; PCP Family Medicine
DX: J02.9 Acute pharyngitis, unspecified (principal)
CPT/HCPCS: 36415; 59025; 76705; 76819; 80048; 80076; 83605; 85025; 86140; 86308; 87631; 87651; 96361; 96374; 99284; 99285; J1100; J7030